=== PATIENT | female | born 1940 | race Caucasian/White ===

== ENCOUNTER 2021-01-18 08:14 | Outpatient (REF) | payer MEDICARE, SELFPAY ==
--- NOTE | ~2021-01-18 | MM_ITS ---
EXAMINATION: MM SCREENING DIGITAL BREAST TOMOSYNTHESIS, BILATERAL CLINICAL INFORMATION: Screening. Asymptomatic. The lifetime risk of breast cancer based on the Tyrer-Cuzick Model is 2%. COMPARISON: Mammography: 02/17/2019, 01/08/2018, 09/06/2016, 08/26/2015, 12/23/2013 TECHNIQUE: Digital breast tomosynthesis is performed in both the craniocaudal and mediolateral oblique views along with computer-aided detection (CAD). Synthesized 2D images are generated from the tomosynthesis. FINDINGS: There are scattered areas of fibroglandular density (ACR BI-RADS breast composition Category b). Right breast has scattered benign coarse and round calcifications similar to prior studies. There are other grouped calcifications in the posterior upper outer right breast which appear increased and some heterogeneous and fine. This represents change from prior exams. Patient will be recalled for additional imaging. Otherwise, the right breast parenchymal pattern shows no developing density or interval mass or architectural abnormality. The bilateral axilla and skin contours are unremarkable. Left breast has scattered benign coarse, round, and some ductal secretory calcifications. No suspicious calcifications. The left CC tomography has questionable architectural changes mid outer quadrant. Finding not seen on synthesize CC view and there is no correlate on MLO view. This may represent incompletely compressed glandular tissue. Patient will be recalled for additional imaging. MM/MM tomosynthesis screening BI IMPRESSION: 1. Right: Grouped heterogeneous calcifications posterior upper outer quadrant. 2. Left: Question of architectural changes mid outer quadrant limited to CC view tomography, possibly related to incompletely compressed glandular tissue. ASSESSMENT: BI-RADS 0: Incomplete - Need Additional Imaging Evaluation RECOMMENDATION: 1. Additional views right breast: magnification exaggerated CC; magnification ML. 2. Additional views left breast (3D rolled CC x2; 3D ML). Targeted ultrasound if warranted after review of the additional views. 3. Radiology department staff will contact the patient for additional imaging. This patient's information was entered into a reminder system with a target due date for their next mammogram.
== END 2021-01-18 08:15 | disposition home or self-care (01) ==
LOC: HO.MAMMO 08:14
PROVIDERS: PCP Internal Medicine Medical Oncology; Visit Provider Internal Medicine Medical Oncology
DX: Z12.31 Encounter for screening mammogram for malignant neoplasm of breast (principal)
CPT/HCPCS: 77063; 77067

== ENCOUNTER 2021-02-02 13:43 | Outpatient (REF) | payer MEDICARE, SELFPAY ==
--- NOTE | ~2021-02-02 | MM_ITS ---
EXAMINATION: MM DIAGNOSTIC DIGITAL BREAST TOMOSYNTHESIS, BILATERAL US DIAGNOSTIC ULTRASOUND BREAST, LEFT CLINICAL INFORMATION: Recall from screening for increased grouped calcifications posterior upper outer right breast and question of architectural changes mid outer left breast limited to CC view. COMPARISON: Mammography: 02/02/2021, 01/18/2021, 02/17/2019, 01/08/2018 TECHNIQUE: Digital breast tomosynthesis is performed. 2D images are generated from the tomosynthesis. The following views are obtained: Rolled CC x2, standard ML. In addition, magnification right exaggerated CC and magnification right ML views are also obtained. Ultrasound left breast is targeted to the upper outer quadrant. Grayscale imaging and color Doppler are performed without and with harmonics. FINDINGS: There are scattered areas of fibroglandular density (ACR BI-RADS breast composition Category b). Additional views left breast show no architectural distortion. Magnification views right breast demonstrate increased grouped heterogeneous calcifications in the area of concern posterior upper outer right breast. This represents change from prior exams. Stereotactic sampling is recommended. Ultrasound outer left breast demonstrates no mass or architectural abnormality. Results are discussed with the patient at time of visit. Results and recommendation called to medical equipment repair technician (Monique) for Dr. Lee on 02/02/2021. MM/MM tomosynthesis added view BI IMPRESSION: 1. Right: Grouped heterogeneous calcifications posterior upper outer right breast. 2. Left: Additional views show no persistent architectural abnormality. Unremarkable targeted ultrasound left breast. ASSESSMENT: BI-RADS 4: Suspicious RECOMMENDATION: Stereotactic biopsy right breast calcifications. This patient's information was entered into a reminder system with a target due date for their next mammogram.
== END 2021-02-02 13:44 | disposition home or self-care (01) ==
LOC: HO.MAMMO 13:43
PROVIDERS: PCP Internal Medicine Medical Oncology; Visit Provider Internal Medicine Medical Oncology
DX: R92.1 Mammographic calcification found on diagnostic imaging of breast (principal); N64.89 Other specified disorders of breast; E53.8 Deficiency of other specified B group vitamins
CPT/HCPCS: 76642; 77062; 77066

== ENCOUNTER 2021-02-03 | Outpatient (REF) | payer MEDICARE, SELFPAY ==
[2021-02-10 19:33] LABS: Intrinsic Factor Antibodies Negative (Negative)
== END 2021-02-03 00:01 | disposition home or self-care (01) ==
LOC: HO.LAB
PROVIDERS: Visit Provider Internal Medicine Medical Oncology
DX: E53.8 Deficiency of other specified B group vitamins (principal)
CPT/HCPCS: 36415; 86340

== ENCOUNTER 2021-02-10 09:51 | Outpatient (REF) | payer MEDICARE, SELFPAY ==
--- NOTE | ~2021-02-10 | MM_ITS ---
EXAMINATION: STEREOTACTIC TOMOSYNTHESIS-GUIDED VACUUM-ASSISTED BREAST BIOPSY, RIGHT SPECIMEN RADIOGRAPH, RIGHT POST PROCEDURE DIGITAL MAMMOGRAM, RIGHT CLINICAL INFORMATION: Increased grouped heterogeneous calcifications posterior upper outer right breast. COMPARISON: Mammography 01/18/2021, 02/02/2021. TECHNIQUE/PROCEDURE: Informed consent was obtained from the patient after discussion of the benefits, risks, and alternatives to biopsy today. Patient appeared to understand. Gave opportunity for questions. Patient signed consent form. BIOPSY TABLE: [employer] Affirm Prone Biopsy System. LESION: Grouped heterogeneous calcifications posterior upper outer right breast. LOCAL ANESTHESIA: 8 mL 1% lidocaine; 10 mL 1% lidocaine with epinephrine. DERMATOTOMY: Single skin kandi dermatotomy performed. NEEDLE: [employer] Eviva 9-gauge vacuum assisted core biopsy device. APPROACH: craniocaudal. TARGETING: Digital breast tomosynthesis used for targeting. CORES: 9. CLIP: [employer] SecurMark Cylinder-shaped marker. SPECIMEN RADIOGRAPH: Specimen radiograph is taken in separate room using digital mammography. There are numerous calcifications in the cores, over 50 in number. POST PROCEDURE UNILATERAL DIGITAL MAMMOGRAM: The post biopsy mammogram is performed in separate room using separate digital mammography equipment from the biopsy procedure. CC and ML views are obtained. There are scattered areas of fibroglandular density (breast composition category: b). The clip marker is in position. The calcifications are markedly decreased at the biopsy site. No gross hematoma. The patient tolerated the procedure well. No immediate complications. Home instructions reviewed with the patient. Final pathology results are pending. MM/MM stereotactic biopsy RT IMPRESSION: 1. Digital tomosynthesis-guided core biopsy right breast with clip placement. 2. Specimen radiograph taken and post procedure mammogram. There is satisfactory positioning of the biopsy clip. 3. Final pathology results pending. An addendum report will be issued.
== END 2021-02-10 09:52 | disposition home or self-care (01) ==
LOC: HO.MAMMO 09:51
PROVIDERS: Visit Provider Internal Medicine Medical Oncology
DX: R92.1 Mammographic calcification found on diagnostic imaging of breast (principal)
CPT/HCPCS: 19081; 88305; A4648

== ENCOUNTER 2021-05-05 07:50 | Outpatient (REF) | payer MEDICARE, SELFPAY ==
[2021-05-05 11:16] LABS: Vitamin B12 1182 pg/mL (200-900)
[2021-05-06 07:21] LABS: Estimated Average Glucose 154 mg/dL; Hemoglobin A1C 148.8994 umol/L
[2021-05-09 00:42] LABS: Intrinsic Factor Antibodies Negative (Negative)
== END 2021-05-05 07:51 | disposition home or self-care (01) ==
LOC: HO.10HDL 07:50
PROVIDERS: Visit Provider Internal Medicine Medical Oncology
DX: E78.5 Hyperlipidemia, unspecified (principal); E11.9 Type 2 diabetes mellitus without complications; E53.8 Deficiency of other specified B group vitamins
CPT/HCPCS: 36415; 82607; 83036; 86340

== ENCOUNTER 2021-08-03 08:07 | Outpatient (REF) | payer MEDICARE, SELFPAY ==
[2021-08-03 10:32] LABS: MANUAL DIFF FLAG NO
[2021-08-03 10:40] LABS: Basophils Absolute Auto 0.1 X10*3/uL (0.0-0.2); Basophils Percent Auto 0.8 % (0-2); Eosinophils Absolute Auto 0.1 X10*3/uL (0.0-0.4); Eosinophils Percent Auto 1.4 % (0-4); Hematocrit 32.6 % (37.0-47.0); Hemoglobin 9.8 g/dl (12.0-16.0); Imm Gran Abs Auto 0.01 X10*3/uL (0.00-0.03); Imm Gran Pct Auto 0.2 % (0.0-0.4); Lymphocytes Absolute Auto 1.6 X10*3/uL (1.2-4.9); Lymphocytes Percent Auto 24.3 % (20-40); Mean Corpuscular HGB Conc 30.1 g/dl (31.0-35.0); Mean Corpuscular Hemoglobin 26.2 pg (27.0-33.0); Mean Corpuscular Volume 87.2 fL (80.0-98.0); Mean Platelet Volume 12.1 fL (9.4-12.3); Monocytes Absolute Auto 0.4 X10*3/uL (0.1-1.2); Monocytes Percent Auto 6.3 % (2-11); Neutrophils Absolute Auto 4.5 x10*3/uL (2.0-8.3); Platelet Count 368 X10*3/uL (160-400); Red Blood Count 3.74 X10*6/uL (4.20-5.50); Red Cell Distribution Width 16.1 % (11.0-16.0); White Blood Count 6.6 X10*3/uL (4.8-10.8)
[2021-08-03 10:49] LABS: Estimated Average Glucose 160 mg/dL; Hemoglobin A1c % 7.2 %
[2021-08-03 10:53] LABS: Alanine Aminotransferase 13 U/L (0-31); Alkaline Phosphatase 46 U/L (39-117); Anion Gap 12 (12-20); Aspartate Amino Transferase 15 U/L (5-31); Bilirubin Total 0.3 mg/dL (0.0-1.0); Blood Urea Nitrogen 14 mg/dL (9-16); Calcium 10.2 mg/dL (8.4-10.2); Carbon Dioxide 29 mmol/L (22-29); Chloride 106 mmol/L (96-108); Cholesterol 147 mg/dL; Estimated Glomerular Filt Rate > 60; Glucose Fasting 132 mg/dL (60-99); HDL Cholesterol 51 mg/dL; LDL Cholesterol Calculated 76 mg/dl; Potassium 5.1 mmol/L (3.3-5.1); Sodium 142 mmol/L (135-145); Total Protein 6.7 g/dL (6.5-8.0); Triglycerides 102 mg/dL
[2021-08-03 11:15] LABS: Free T4 (Free Thyroxine) 0.96 ng/dL (0.71-1.85); Thyroid Stimulating Hormone 4.52 uIU/mL (0.32-4.0)
[2021-08-03 11:42] LABS: Vitamin B12 1724 pg/mL (200-900)
== END 2021-08-03 08:08 | disposition home or self-care (01) ==
LOC: HO.10HDL 08:07
PROVIDERS: Visit Provider Internal Medicine Medical Oncology
DX: E78.5 Hyperlipidemia, unspecified (principal); E53.8 Deficiency of other specified B group vitamins; I10 Essential (primary) hypertension
CPT/HCPCS: 36415; 80053; 80061; 82607; 83036; 84439; 84443; 85025

== ENCOUNTER 2021-11-01 07:41 | Outpatient (REF) | payer MEDICARE, SELFPAY ==
[2021-11-01 10:16] LABS: MANUAL DIFF FLAG NO
[2021-11-01 10:21] LABS: Basophils Absolute Auto 0.1 X10*3/uL (0.0-0.2); Basophils Percent Auto 0.7 % (0-2); Eosinophils Absolute Auto 0.1 X10*3/uL (0.0-0.4); Eosinophils Percent Auto 1.2 % (0-4); Hematocrit 34.5 % (37.0-47.0); Hemoglobin 10.4 g/dl (12.0-16.0); Imm Gran Abs Auto 0.03 X10*3/uL (0.00-0.03); Imm Gran Pct Auto 0.4 % (0.0-0.4); Immature Retic Fraction 14.9 % (3.0-15.9); Lymphocytes Absolute Auto 2.3 X10*3/uL (1.2-4.9); Lymphocytes Percent Auto 26.9 % (20-40); Mean Corpuscular HGB Conc 30.1 g/dl (31.0-35.0); Mean Corpuscular Hemoglobin 26.4 pg (27.0-33.0); Mean Corpuscular Volume 87.6 fL (80.0-98.0); Mean Platelet Volume 11.9 fL (9.4-12.3); Monocytes Absolute Auto 0.5 X10*3/uL (0.1-1.2); Neutrophils Absolute Auto 5.4 x10*3/uL (2.0-8.3); Neutrophils Percent Auto 64.8 % (45-73); Platelet Count 366 X10*3/uL (160-400); Red Blood Count 3.94 X10*6/uL (4.20-5.50); Red Cell Distribution Width 16.5 % (11.0-16.0); Reticulocyte Percent 1.3 % (0.5-1.8); Reticulocytes Absolute 0.052 X10*6/uL (0.026-0.095); White Blood Count 8.4 X10*3/uL (4.8-10.8)
[2021-11-01 10:27] LABS: Appearance Urine HAZY; Color Urine YELLOW; Glucose Urine UA NEG (NEG); Leukocyte Esterase Urine 3+ (NEG); Nitrite Urine NEG (NEG); PH 5.5 (5.0-8.0); Specific Gravity - Urine 1.025 (1.005-1.025); Urine Blood NEG (NEG); Urine Ketones NEG (NEG); Urine Protein NEG (NEG-TRACE)
[2021-11-01 10:49] LABS: Alanine Aminotransferase 15 U/L (0-31); Albumin Level 4.1 g/dL (3.5-5.0); Alkaline Phosphatase 51 U/L (39-117); Anion Gap 14 (12-20); Aspartate Amino Transferase 16 U/L (5-31); Bilirubin Total 0.2 mg/dL (0.0-1.0); Blood Urea Nitrogen 16 mg/dL (9-16); Calcium 10.2 mg/dL (8.4-10.2); Carbon Dioxide 27 mmol/L (22-29); Chloride 104 mmol/L (96-108); Cholesterol 162 mg/dL; Estimated Glomerular Filt Rate > 60; Glucose Random 125 mg/dL (60-115); HDL Cholesterol 54 mg/dL; LDL Cholesterol Calculated 85 mg/dl; Potassium 4.8 mmol/L (3.3-5.1); Sodium 140 mmol/L (135-145); Total Protein 6.9 g/dL (6.5-8.0); Triglycerides 115 mg/dL
[2021-11-01 11:12] LABS: Erythrocyte Sedimentation Rate 18 MM/HR (0-20)
[2021-11-01 11:18] LABS: Amorphous Sediment Urine 1+ /LPF; Bacteria Urine 2+ /LPF; Mucus Urine 1+ /LPF; RBC Urine 0 /HPF (0); Squamous Epithelial Cell Urine 2+ /LPF
[2021-11-01 11:36] LABS: Ferritin 5 ng/mL (10-250)
== END 2021-11-01 07:42 | disposition home or self-care (01) ==
LOC: HO.10HDL 07:41
PROVIDERS: PCP Internal Medicine Medical Oncology; Visit Provider Internal Medicine Medical Oncology
DX: E78.5 Hyperlipidemia, unspecified (principal); I10 Essential (primary) hypertension; E53.8 Deficiency of other specified B group vitamins
CPT/HCPCS: 36415; 80053; 80061; 81001; 82728; 85025; 85045; 85652

== ENCOUNTER 2022-01-26 07:58 | Outpatient (REF) | payer MEDICARE, SELFPAY ==
[2022-01-26 08:11] LABS: MANUAL DIFF FLAG NO
[2022-01-26 08:21] LABS: Basophils Percent Auto 0.6 % (0-2); Eosinophils Absolute Auto 0.1 X10*3/uL (0.0-0.4); Eosinophils Percent Auto 1.3 % (0-4); Hematocrit 35.5 % (37.0-47.0); Hemoglobin 10.9 g/dl (12.0-16.0); Imm Gran Abs Auto 0.02 X10*3/uL (0.00-0.03); Imm Gran Pct Auto 0.3 % (0.0-0.4); Immature Retic Fraction 14.2 % (3.0-15.9); Lymphocytes Absolute Auto 1.8 X10*3/uL (1.2-4.9); Lymphocytes Percent Auto 25.1 % (20-40); Mean Corpuscular HGB Conc 30.7 g/dl (31.0-35.0); Mean Corpuscular Hemoglobin 27.5 pg (27.0-33.0); Mean Corpuscular Volume 89.4 fL (80.0-98.0); Mean Platelet Volume 11.2 fL (9.4-12.3); Monocytes Absolute Auto 0.4 X10*3/uL (0.1-1.2); Monocytes Percent Auto 5.8 % (2-11); Neutrophils Absolute Auto 4.8 x10*3/uL (2.0-8.3); Neutrophils Percent Auto 66.9 % (45-73); Platelet Count 298 X10*3/uL (160-400); Red Blood Count 3.97 X10*6/uL (4.20-5.50); Red Cell Distribution Width 17.3 % (11.0-16.0); Retic HGB Equivalent 32.8 pg (30.0-35.0); Reticulocyte Percent 1.2 % (0.5-1.8); Reticulocytes Absolute 0.049 X10*6/uL (0.026-0.095); White Blood Count 7.2 X10*3/uL (4.8-10.8)
[2022-01-26 08:28] LABS: Estimated Average Glucose 143 mg/dL; Hemoglobin A1c % 6.6 %
[2022-01-26 08:43] LABS: Alanine Aminotransferase 15 U/L (0-31); Albumin Level 4.2 g/dL (3.5-5.0); Alkaline Phosphatase 46 U/L (39-117); Anion Gap 11 (12-20); Aspartate Amino Transferase 15 U/L (5-31); Bilirubin Total 0.4 mg/dL (0.0-1.0); Blood Urea Nitrogen 15 mg/dL (9-16); Calcium 10.2 mg/dL (8.4-10.2); Carbon Dioxide 31 mmol/L (22-29); Chloride 104 mmol/L (96-108); Cholesterol 146 mg/dL; Estimated Glomerular Filt Rate > 60; Glucose Fasting 131 mg/dL (60-99); HDL Cholesterol 50 mg/dL; LDL Cholesterol Calculated 75 mg/dl; Potassium 5.1 mmol/L (3.3-5.1); Sodium 141 mmol/L (135-145); Total Protein 6.9 g/dL (6.5-8.0); Triglycerides 108 mg/dL
[2022-01-26 09:05] LABS: Ferritin 5 ng/mL (10-250)
== END 2022-01-26 07:59 | disposition home or self-care (01) ==
LOC: HO.LAB 07:58
PROVIDERS: PCP Internal Medicine Medical Oncology; Visit Provider Internal Medicine Medical Oncology
DX: E53.8 Deficiency of other specified B group vitamins (principal); D64.9 Anemia, unspecified; E78.5 Hyperlipidemia, unspecified; E11.9 Type 2 diabetes mellitus without complications; I10 Essential (primary) hypertension
CPT/HCPCS: 36415; 80053; 80061; 82728; 83036; 85025; 85045

== ENCOUNTER 2022-05-25 07:16 | Outpatient (REF) | payer MEDICARE, SELFPAY ==
[2022-05-25 07:41] LABS: MANUAL DIFF FLAG NO
[2022-05-25 08:01] LABS: Basophils Percent Auto 0.5 % (0-2); Eosinophils Absolute Auto 0.1 X10*3/uL (0.0-0.4); Eosinophils Percent Auto 1.2 % (0-4); Hematocrit 36.6 % (37.0-47.0); Hemoglobin 11.5 g/dl (12.0-16.0); Imm Gran Abs Auto 0.01 X10*3/uL (0.00-0.03); Imm Gran Pct Auto 0.2 % (0.0-0.4); Lymphocytes Absolute Auto 1.4 X10*3/uL (1.2-4.9); Lymphocytes Percent Auto 22.7 % (20-40); Mean Corpuscular HGB Conc 31.4 g/dl (31.0-35.0); Mean Corpuscular Hemoglobin 29.2 pg (27.0-33.0); Mean Corpuscular Volume 92.9 fL (80.0-98.0); Monocytes Absolute Auto 0.4 X10*3/uL (0.1-1.2); Monocytes Percent Auto 6.6 % (2-11); Neutrophils Absolute Auto 4.2 x10*3/uL (2.0-8.3); Neutrophils Percent Auto 68.8 % (45-73); Platelet Count 294 X10*3/uL (160-400); Red Blood Count 3.94 X10*6/uL (4.20-5.50); Red Cell Distribution Width 14.3 % (11.0-16.0); White Blood Count 6.1 X10*3/uL (4.8-10.8)
[2022-05-25 08:12] LABS: Alanine Aminotransferase 11 U/L (0-31); Albumin Level 4.1 g/dL (3.5-5.0); Alkaline Phosphatase 45 U/L (39-117); Anion Gap 15 (12-20); Aspartate Amino Transferase 14 U/L (5-31); Bilirubin Total 0.4 mg/dL (0.0-1.0); Blood Urea Nitrogen 11 mg/dL (9-16); Calcium 9.7 mg/dL (8.4-10.2); Carbon Dioxide 29 mmol/L (22-29); Chloride 104 mmol/L (96-108); Cholesterol 133 mg/dL; Estimated Glomerular Filt Rate > 60; Glucose Fasting 116 mg/dL (60-99); HDL Cholesterol 52 mg/dL; LDL Cholesterol Calculated 59 mg/dl; Potassium 4.6 mmol/L (3.3-5.1); Sodium 143 mmol/L (135-145); Total Protein 6.6 g/dL (6.5-8.0); Triglycerides 110 mg/dL
[2022-05-25 08:18] LABS: Estimated Average Glucose 148 mg/dL; Hemoglobin A1c % 6.8 %
[2022-05-25 08:27] LABS: Creatinine Urine 123.71 mg/dL; Microalbum/Creatinine Ratio Ur 7.2 ug/mg cr
== END 2022-05-25 07:17 | disposition home or self-care (01) ==
LOC: HO.LAB 07:16
PROVIDERS: PCP Internal Medicine Medical Oncology; Visit Provider Internal Medicine Medical Oncology
DX: E53.8 Deficiency of other specified B group vitamins (principal); E78.5 Hyperlipidemia, unspecified; E11.9 Type 2 diabetes mellitus without complications; I10 Essential (primary) hypertension
CPT/HCPCS: 36415; 80053; 80061; 82043; 83036; 85025

== ENCOUNTER 2022-09-27 08:01 | Outpatient (REF) | payer MEDICARE, SELFPAY ==
[2022-09-27 10:56] LABS: MANUAL DIFF FLAG NO
[2022-09-27 11:27] LABS: Basophils Percent Auto 0.6 % (0-2); Eosinophils Absolute Auto 0.1 X10*3/uL (0.0-0.4); Eosinophils Percent Auto 0.9 % (0-4); Hematocrit 38.9 % (37.0-47.0); Hemoglobin 12.3 g/dl (12.0-16.0); Imm Gran Abs Auto 0.01 X10*3/uL (0.00-0.03); Imm Gran Pct Auto 0.1 % (0.0-0.4); Lymphocytes Absolute Auto 1.7 X10*3/uL (1.2-4.9); Lymphocytes Percent Auto 25.3 % (20-40); Mean Corpuscular HGB Conc 31.6 g/dl (31.0-35.0); Mean Corpuscular Hemoglobin 29.6 pg (27.0-33.0); Mean Corpuscular Volume 93.5 fL (80.0-98.0); Mean Platelet Volume 11.3 fL (9.4-12.3); Monocytes Absolute Auto 0.3 X10*3/uL (0.1-1.2); Neutrophils Absolute Auto 4.7 x10*3/uL (2.0-8.3); Neutrophils Percent Auto 68.1 % (45-73); Platelet Count 347 X10*3/uL (160-400); Red Blood Count 4.16 X10*6/uL (4.20-5.50); Red Cell Distribution Width 13.2 % (11.0-16.0); White Blood Count 6.9 X10*3/uL (4.8-10.8)
[2022-09-27 11:45] LABS: Estimated Average Glucose 154 mg/dL
[2022-09-27 12:02] LABS: Alanine Aminotransferase 13 U/L (0-31); Albumin Level 4.2 g/dL (3.5-5.0); Alkaline Phosphatase 45 U/L (39-117); Anion Gap 15 (12-20); Aspartate Amino Transferase 14 U/L (5-31); Bilirubin Total 0.4 mg/dL (0.0-1.0); Blood Urea Nitrogen 15 mg/dL (9-16); Calcium 10.4 mg/dL (8.4-10.2); Carbon Dioxide 29 mmol/L (22-29); Chloride 104 mmol/L (96-108); Cholesterol 175 mg/dL; Estimated Glomerular Filt Rate > 60; Glucose Fasting 122 mg/dL (60-99); HDL Cholesterol 56 mg/dL; LDL Cholesterol Calculated 94 mg/dl; Potassium 4.6 mmol/L (3.3-5.1); Sodium 143 mmol/L (135-145); Total Protein 6.8 g/dL (6.5-8.0); Triglycerides 128 mg/dL; Vitamin D 25-OH Total 48.6 ng/mL (>30)
== END 2022-09-27 08:02 | disposition home or self-care (01) ==
LOC: HO.10HDL 08:01
PROVIDERS: Visit Provider Internal Medicine Medical Oncology
DX: E11.9 Type 2 diabetes mellitus without complications (principal); E61.1 Iron deficiency; E78.5 Hyperlipidemia, unspecified
CPT/HCPCS: 36415; 80053; 80061; 82306; 83036; 85025

== ENCOUNTER 2023-01-01 06:39 | Outpatient (REF) | payer MEDICARE, SELFPAY ==
[2023-01-01 06:50] LABS: MANUAL DIFF FLAG NO
[2023-01-01 07:43] LABS: Basophils Absolute Auto 0.1 X10*3/uL (0.0-0.2); Basophils Percent Auto 0.9 % (0-2); Eosinophils Absolute Auto 0.1 X10*3/uL (0.0-0.4); Eosinophils Percent Auto 0.8 % (0-4); Hematocrit 37.9 % (37.0-47.0); Hemoglobin 11.9 g/dl (12.0-16.0); Imm Gran Abs Auto 0.03 X10*3/uL (0.00-0.03); Imm Gran Pct Auto 0.4 % (0.0-0.4); Lymphocytes Absolute Auto 2.3 X10*3/uL (1.2-4.9); Lymphocytes Percent Auto 29.8 % (20-40); Mean Corpuscular HGB Conc 31.4 g/dl (31.0-35.0); Mean Corpuscular Hemoglobin 29.8 pg (27.0-33.0); Mean Platelet Volume 11.3 fL (9.4-12.3); Monocytes Absolute Auto 0.5 X10*3/uL (0.1-1.2); Neutrophils Absolute Auto 4.7 x10*3/uL (2.0-8.3); Neutrophils Percent Auto 62.1 % (45-73); Platelet Count 317 X10*3/uL (160-400); Red Blood Count 3.99 X10*6/uL (4.20-5.50); White Blood Count 7.6 X10*3/uL (4.8-10.8)
[2023-01-01 07:56] LABS: Estimated Average Glucose 148 mg/dL; Hemoglobin A1c % 6.8 %
[2023-01-01 08:16] LABS: Alanine Aminotransferase 11 U/L (0-31); Alkaline Phosphatase 44 U/L (39-117); Anion Gap 13 (12-20); Aspartate Amino Transferase 16 U/L (5-31); Bilirubin Total 0.4 mg/dL (0.0-1.0); Blood Urea Nitrogen 12 mg/dL (9-16); Calcium 10.3 mg/dL (8.4-10.2); Carbon Dioxide 29 mmol/L (22-29); Chloride 105 mmol/L (96-108); Cholesterol 156 mg/dL; Estimated Glomerular Filt Rate > 60; Glucose Fasting 119 mg/dL (60-99); HDL Cholesterol 54 mg/dL; LDL Cholesterol Calculated 81 mg/dl; Potassium 4.7 mmol/L (3.3-5.1); Sodium 142 mmol/L (135-145); Total Protein 6.6 g/dL (6.5-8.0); Triglycerides 106 mg/dL
[2023-01-01 09:39] LABS: Creatinine Urine 112.74 mg/dL; Microalbum/Creatinine Ratio Ur 6.2 ug/mg cr
== END 2023-01-01 06:40 | disposition home or self-care (01) ==
LOC: HO.LAB 06:39
PROVIDERS: PCP Internal Medicine Medical Oncology; Visit Provider Internal Medicine Medical Oncology
DX: E11.9 Type 2 diabetes mellitus without complications (principal); E78.5 Hyperlipidemia, unspecified; I10 Essential (primary) hypertension
CPT/HCPCS: 36415; 80053; 80061; 82043; 83036; 85025

== ENCOUNTER 2023-02-20 10:14 | Outpatient (REF) | payer MEDICARE, SELFPAY ==
--- NOTE | ~2023-02-20 | MM_ITS ---
EXAMINATION: MM SCREENING DIGITAL BREAST TOMOSYNTHESIS, BILATERAL CLINICAL INFORMATION: Screening. Asymptomatic. The lifetime risk of breast cancer based on the Tyrer-Cuzick Model is 1.8%. COMPARISON: Mammography: This study is compared with prior exams dating back to 2018. TECHNIQUE: Digital breast tomosynthesis is performed in both the craniocaudal and mediolateral oblique views along with computer-aided detection (CAD). Synthesized 2D images are generated from the tomosynthesis. FINDINGS: The breasts are heterogeneously dense, which may obscure small masses (ACR BI-RADS breast composition Category c). There are no significant masses, abnormal calcifications, or other abnormalities. There is a tissue marker in the upper outer quadrant of the right breast from prior benign percutaneous biopsy. Bilateral benign calcifications are present. MM/MM tomosynthesis screening BI IMPRESSION: No mammographic evidence of malignancy. ASSESSMENT: BI-RADS BI-RADS 2 - Benign Findings RECOMMENDATION: Routine annual mammography screening. 1 year F/U This examination should not preclude the clinical evaluation of a suspicious palpable abnormality. This patient's information was entered into a reminder system with a target due date for their next mammogram.
== END 2023-02-20 10:15 | disposition home or self-care (01) ==
LOC: HO.MAMMO 10:14
PROVIDERS: PCP Internal Medicine Medical Oncology; Visit Provider Internal Medicine Medical Oncology
DX: Z12.31 Encounter for screening mammogram for malignant neoplasm of breast (principal)
CPT/HCPCS: 77063; 77067

== ENCOUNTER → 2023-02-20 10:15 | Outpatient (BNV) | payer MEDICARE, SELFPAY | PROVIDERS: PCP Internal Medicine Medical Oncology; Visit Provider Radiology Diagnostic Radiology | DX: Z12.31 Encounter for screening mammogram for malignant neoplasm of breast (principal) | CPT/HCPCS: 77063; 77067 ==

== ENCOUNTER 2023-05-08 06:57 | Outpatient (REF) | payer MEDICARE, SELFPAY ==
[2023-05-08 07:11] LABS: MANUAL DIFF FLAG NO
[2023-05-08 07:56] LABS: Basophils Absolute Auto 0.1 X10*3/uL (0.0-0.2); Basophils Percent Auto 0.8 % (0-2); Eosinophils Absolute Auto 0.1 X10*3/uL (0.0-0.4); Eosinophils Percent Auto 1.1 % (0-4); Hematocrit 38.7 % (37.0-47.0); Hemoglobin 12.1 g/dl (12.0-16.0); Imm Gran Abs Auto 0.02 X10*3/uL (0.00-0.03); Imm Gran Pct Auto 0.3 % (0.0-0.4); Lymphocytes Absolute Auto 1.6 X10*3/uL (1.2-4.9); Lymphocytes Percent Auto 21.9 % (20-40); Mean Corpuscular HGB Conc 31.3 g/dl (31.0-35.0); Mean Corpuscular Hemoglobin 29.4 pg (27.0-33.0); Mean Corpuscular Volume 93.9 fL (80.0-98.0); Mean Platelet Volume 10.9 fL (9.4-12.3); Monocytes Absolute Auto 0.4 X10*3/uL (0.1-1.2); Monocytes Percent Auto 5.3 % (2-11); Neutrophils Absolute Auto 5.2 x10*3/uL (2.0-8.3); Neutrophils Percent Auto 70.6 % (45-73); Platelet Count 339 X10*3/uL (160-400); Red Blood Count 4.12 X10*6/uL (4.20-5.50); Red Cell Distribution Width 13.6 % (11.0-16.0); White Blood Count 7.4 X10*3/uL (4.8-10.8)
[2023-05-08 08:13] LABS: Vitamin B12 929 pg/mL (200-900)
[2023-05-08 08:20] LABS: Alanine Aminotransferase 9 U/L (0-31); Albumin Level 4.1 g/dL (3.5-5.0); Alkaline Phosphatase 45 U/L (39-117); Anion Gap 14 (12-20); Aspartate Amino Transferase 15 U/L (5-31); Bilirubin Total 0.4 mg/dL (0.0-1.0); Blood Urea Nitrogen 11 mg/dL (9-16); Calcium 10.2 mg/dL (8.4-10.2); Carbon Dioxide 27 mmol/L (22-29); Chloride 104 mmol/L (96-108); Cholesterol 149 mg/dL (<200); Estimated Glomerular Filt Rate > 60; Glucose Fasting 131 mg/dL (60-99); HDL Cholesterol 52 mg/dL (>40); LDL Cholesterol Calculated 74 mg/dL (<100); Potassium 4.8 mmol/L (3.3-5.1); Sodium 140 mmol/L (135-145); Total Protein 7.1 g/dL (6.5-8.0); Triglycerides 118 mg/dL (<150)
[2023-05-08 12:21] LABS: Estimated Average Glucose 148 mg/dL; Hemoglobin A1c % 6.8 % (<6.0)
== END 2023-05-08 06:58 | disposition home or self-care (01) ==
LOC: HO.LAB 06:57
PROVIDERS: PCP Internal Medicine Medical Oncology; Visit Provider Internal Medicine Medical Oncology
DX: E11.9 Type 2 diabetes mellitus without complications (principal); I10 Essential (primary) hypertension; E66.3 Overweight
CPT/HCPCS: 36415; 80053; 80061; 82607; 83036; 85025

== ENCOUNTER 2023-05-10 12:57 | Outpatient (REF) | payer MEDICARE, SELFPAY | END 2023-05-10 12:58 | disposition home or self-care (01) | LOC: HO.10HDLNP 12:57 | PROVIDERS: Visit Provider Internal Medicine Medical Oncology | DX: J02.9 Acute pharyngitis, unspecified (principal) | CPT/HCPCS: 87070; 87205 ==

== ENCOUNTER 2023-09-06 07:37 | Outpatient (REF) | payer MEDICARE, SELFPAY ==
[2023-09-06 10:29] LABS: MANUAL DIFF FLAG NO
[2023-09-06 10:41] LABS: Basophils Absolute Auto 0.1 X10*3/uL (0.0-0.2); Basophils Percent Auto 0.8 % (0-2); Eosinophils Absolute Auto 0.1 X10*3/uL (0.0-0.4); Eosinophils Percent Auto 1.3 % (0-4); Hemoglobin 11.7 g/dl (12.0-16.0); Imm Gran Abs Auto 0.01 X10*3/uL (0.00-0.03); Imm Gran Pct Auto 0.2 % (0.0-0.4); Lymphocytes Absolute Auto 1.4 X10*3/uL (1.2-4.9); Lymphocytes Percent Auto 21.5 % (20-40); Mean Corpuscular HGB Conc 31.6 g/dl (31.0-35.0); Mean Corpuscular Hemoglobin 29.4 pg (27.0-33.0); Mean Platelet Volume 11.3 fL (9.4-12.3); Monocytes Absolute Auto 0.3 X10*3/uL (0.1-1.2); Monocytes Percent Auto 5.3 % (2-11); Neutrophils Absolute Auto 4.5 x10*3/uL (2.0-8.3); Neutrophils Percent Auto 70.9 % (45-73); Platelet Count 320 X10*3/uL (160-400); Red Blood Count 3.98 X10*6/uL (4.20-5.50); Red Cell Distribution Width 13.3 % (11.0-16.0); White Blood Count 6.4 X10*3/uL (4.8-10.8)
[2023-09-06 10:51] LABS: Estimated Average Glucose 151 mg/dL; Hemoglobin A1c % 6.9 % (<6.0)
[2023-09-06 11:16] LABS: Creatinine Urine 76.75 mg/dL; Microalbum/Creatinine Ratio Ur 37.7 ug/mg cr (<30)
[2023-09-06 13:10] LABS: Alanine Aminotransferase 12 U/L (0-31); Albumin Level 4.1 g/dL (3.5-5.0); Alkaline Phosphatase 43 U/L (39-117); Anion Gap 11 (12-20); Aspartate Amino Transferase 15 U/L (5-31); Bilirubin Total 0.3 mg/dL (0.0-1.0); Blood Urea Nitrogen 14 mg/dL (9-16); Carbon Dioxide 31 mmol/L (22-29); Chloride 106 mmol/L (96-108); Cholesterol 153 mg/dL (<200); Estimated Glomerular Filt Rate > 60; Glucose Fasting 128 mg/dL (60-99); HDL Cholesterol 53 mg/dL (>40); LDL Cholesterol Calculated 74 mg/dL (<100); Potassium 4.7 mmol/L (3.3-5.1); Sodium 143 mmol/L (135-145); Total Protein 7.1 g/dL (6.5-8.0); Triglycerides 134 mg/dL (<150)
[2023-09-06 13:39] LABS: Ferritin 10 ng/mL (10-250)
[2023-09-06 14:30] LABS: Vitamin B12 992 pg/mL (200-900)
== END 2023-09-06 07:38 | disposition home or self-care (01) ==
LOC: HO.10HDL 07:37
PROVIDERS: Visit Provider Internal Medicine Medical Oncology
DX: E78.5 Hyperlipidemia, unspecified (principal); I10 Essential (primary) hypertension; E11.9 Type 2 diabetes mellitus without complications; E53.8 Deficiency of other specified B group vitamins; E61.1 Iron deficiency
CPT/HCPCS: 36415; 80053; 80061; 82043; 82570; 82607; 82728; 83036; 85025

== ENCOUNTER 2024-01-15 06:19 | Outpatient (REF) | payer MEDICARE, SELFPAY ==
[2024-01-15 06:36] LABS: MANUAL DIFF FLAG NO
[2024-01-15 08:03] LABS: Basophils Absolute Auto 0.1 X10*3/uL (0.0-0.2); Eosinophils Absolute Auto 0.1 X10*3/uL (0.0-0.4); Eosinophils Percent Auto 0.9 % (0-4); Hematocrit 37.2 % (37.0-47.0); Imm Gran Abs Auto 0.02 X10*3/uL (0.00-0.03); Imm Gran Pct Auto 0.3 % (0.0-0.4); Lymphocytes Absolute Auto 1.9 X10*3/uL (1.2-4.9); Lymphocytes Percent Auto 32.4 % (20-40); Mean Corpuscular HGB Conc 32.3 g/dl (31.0-35.0); Mean Corpuscular Hemoglobin 30.3 pg (27.0-33.0); Mean Corpuscular Volume 93.9 fL (80.0-98.0); Mean Platelet Volume 11.6 fL (9.4-12.3); Monocytes Absolute Auto 0.3 X10*3/uL (0.1-1.2); Monocytes Percent Auto 5.1 % (2-11); Neutrophils Absolute Auto 3.5 x10*3/uL (2.0-8.3); Neutrophils Percent Auto 60.3 % (45-73); Platelet Count 300 X10*3/uL (160-400); Red Blood Count 3.96 X10*6/uL (4.20-5.50); Red Cell Distribution Width 13.6 % (11.0-16.0); White Blood Count 5.9 X10*3/uL (4.8-10.8)
[2024-01-15 08:34] LABS: Estimated Average Glucose 151 mg/dL; Hemoglobin A1c % 6.9 % (<6.0)
[2024-01-15 08:47] LABS: Alanine Aminotransferase 9 U/L (0-31); Alkaline Phosphatase 43 U/L (39-117); Anion Gap 13 (12-20); Aspartate Amino Transferase 14 U/L (5-31); Bilirubin Total 0.4 mg/dL (0.0-1.0); Blood Urea Nitrogen 16 mg/dL (9-16); Calcium 9.9 mg/dL (8.4-10.2); Carbon Dioxide 29 mmol/L (22-29); Chloride 107 mmol/L (96-108); Cholesterol 149 mg/dL (<200); Estimated Glomerular Filt Rate > 60; Glucose Fasting 124 mg/dL (60-99); HDL Cholesterol 52 mg/dL (>40); LDL Cholesterol Calculated 75 mg/dL (<100); Potassium 4.8 mmol/L (3.3-5.1); Sodium 144 mmol/L (135-145); Total Protein 6.8 g/dL (6.5-8.0); Triglycerides 112 mg/dL (<150)
[2024-01-15 09:16] LABS: Ferritin 16 ng/mL (10-250)
[2024-01-15 09:33] LABS: Vitamin B12 656 pg/mL (200-900)
== END 2024-01-15 06:20 | disposition home or self-care (01) ==
LOC: HO.LAB 06:19
PROVIDERS: PCP Internal Medicine Medical Oncology; Visit Provider Internal Medicine Medical Oncology
DX: E78.5 Hyperlipidemia, unspecified (principal); E53.8 Deficiency of other specified B group vitamins; E61.1 Iron deficiency; E11.9 Type 2 diabetes mellitus without complications
CPT/HCPCS: 36415; 80053; 80061; 82607; 82728; 83036; 85025

== ENCOUNTER 2024-04-23 10:13 | Outpatient (REF) | payer MEDICARE, SELFPAY ==
--- NOTE | ~2024-04-23 | MM_ITS ---
EXAMINATION: MM SCREENING DIGITAL BREAST TOMOSYNTHESIS, BILATERAL CLINICAL INFORMATION: Screening. Asymptomatic. COMPARISON: Mammography: Comparison is made with available priors TECHNIQUE: Digital breast mammography with tomosynthesis is performed in both the craniocaudal and mediolateral oblique views along with computer-aided detection (CAD). FINDINGS: The breasts are heterogeneously dense, which may obscure small masses (ACR BI-RADS breast composition Category c). Marker clip in the right breast from previous benign needle core biopsy. There are no significant masses, abnormal calcifications, or other abnormalities. MM/MM tomosynthesis screening BI IMPRESSION: No mammographic evidence of malignancy. ASSESSMENT: BI-RADS BI-RADS 2 - Benign Findings RECOMMENDATION: Routine annual mammography screening. 1 year F/U This examination should not preclude the clinical evaluation of a suspicious palpable abnormality. This patient's information was entered into a reminder system with a target due date for their next mammogram. Electronically signed by: Sandee Mace DO 05/10/2024 02:16 PM EDT
== END 2024-04-23 10:14 | disposition home or self-care (01) ==
LOC: HO.MAMMO 10:13
PROVIDERS: PCP Internal Medicine Medical Oncology; Visit Provider Internal Medicine Medical Oncology
DX: Z12.31 Encounter for screening mammogram for malignant neoplasm of breast (principal)
CPT/HCPCS: 77063; 77067

== ENCOUNTER → 2024-04-23 10:30 | Outpatient (BNV) | payer MEDICARE, SELFPAY | PROVIDERS: PCP Internal Medicine Medical Oncology; Visit Provider Internal Medicine | DX: Z12.31 Encounter for screening mammogram for malignant neoplasm of breast (principal) | CPT/HCPCS: 77063; 77067 ==

== ENCOUNTER 2024-05-13 06:26 | Outpatient (REF) | payer MEDICARE, SELFPAY ==
[2024-05-13 06:37] LABS: MANUAL DIFF FLAG NO
[2024-05-13 07:35] LABS: Basophils Percent Auto 0.4 % (0-2); Eosinophils Absolute Auto 0.1 X10*3/uL (0.0-0.4); Eosinophils Percent Auto 1.2 % (0-4); Hematocrit 38.1 % (37.0-47.0); Imm Gran Abs Auto 0.01 X10*3/uL (0.00-0.03); Imm Gran Pct Auto 0.1 % (0.0-0.4); Lymphocytes Absolute Auto 1.8 X10*3/uL (1.2-4.9); Lymphocytes Percent Auto 26.5 % (20-40); Mean Corpuscular HGB Conc 31.5 g/dl (31.0-35.0); Mean Corpuscular Hemoglobin 29.8 pg (27.0-33.0); Mean Corpuscular Volume 94.5 fL (80.0-98.0); Mean Platelet Volume 11.1 fL (9.4-12.3); Monocytes Absolute Auto 0.5 X10*3/uL (0.1-1.2); Monocytes Percent Auto 6.5 % (2-11); Neutrophils Absolute Auto 4.5 x10*3/uL (2.0-8.3); Neutrophils Percent Auto 65.3 % (45-73); Platelet Count 289 X10*3/uL (160-400); Red Blood Count 4.03 X10*6/uL (4.20-5.50); Red Cell Distribution Width 13.3 % (11.0-16.0); White Blood Count 6.9 X10*3/uL (4.8-10.8)
[2024-05-13 07:36] LABS: Appearance Urine Cloudy; Color Urine Yellow; Glucose Urine UA Negative (Negative); Leukocyte Esterase Urine Large (3+) (Negative); Nitrite Urine Positive (Negative); UMIC TRIGGER UA YES; Urine Blood Trace (Negative); Urine Ketones Negative (Negative); Urine Protein Negative (Neg-Trace)
[2024-05-13 07:41] LABS: Bacteria Urine 4+ (None Seen); Hyaline Casts Urine 0-2 /LPF (0-2); RBC Urine 0-2 /HPF (0-2); WBC Urine >50 /HPF (0-5)
[2024-05-13 07:48] LABS: Estimated Average Glucose 143 mg/dL; Hemoglobin A1c % 6.6 % (<6.0)
[2024-05-13 08:03] LABS: Alanine Aminotransferase 11 U/L (0-31); Alkaline Phosphatase 38 U/L (39-117); Anion Gap 13 (12-20); Aspartate Amino Transferase 13 U/L (5-31); Bilirubin Total 0.3 mg/dL (0.0-1.0); Blood Urea Nitrogen 13 mg/dL (9-16); Calcium 10.3 mg/dL (8.4-10.2); Carbon Dioxide 29 mmol/L (22-29); Chloride 106 mmol/L (96-108); Cholesterol 149 mg/dL (<200); Estimated Glomerular Filt Rate > 60; Glucose Fasting 124 mg/dL (60-99); HDL Cholesterol 54 mg/dL (>40); LDL Cholesterol Calculated 74 mg/dL (<100); Potassium 4.5 mmol/L (3.3-5.1); Sodium 143 mmol/L (135-145); Triglycerides 108 mg/dL (<150)
[2024-05-13 08:04] LABS: Creatinine Urine 41.05 mg/dL; Microalbum/Creatinine Ratio Ur 63.3 ug/mg cr (<30)
== END 2024-05-13 06:27 | disposition home or self-care (01) ==
LOC: HO.LAB 06:26
PROVIDERS: PCP Internal Medicine Medical Oncology; Visit Provider Internal Medicine Medical Oncology
DX: E78.5 Hyperlipidemia, unspecified (principal); E66.3 Overweight; E11.9 Type 2 diabetes mellitus without complications
CPT/HCPCS: 36415; 80053; 80061; 81001; 82043; 82570; 83036; 85025

== ENCOUNTER 2025-02-08 06:11 | Outpatient (REF) | payer MEDICARE, SELFPAY ==
--- OUTSIDE RECORDS SUMMARY | 2025-01-17 14:45 | XMS_ITS ---
Author Organization See Lee III, MD Address [address] [facility] [place] [address] Care Team Providers Care Validation Intern Name Role Phone See Lee Primary Care Provider [phone] REASON FOR VISIT New Refill Request Medications Medication SIG (Take, Route, Fr equency, Duration) Notes Start Date End Date Status Atenolol 25 MG 1 tablet Orally Once a day for 90 days 07/06/2019 Active Social History Sex Assigned At : Social History Observation Description Sex Assigned At Female Encounters Encounter Location Date Provider Diagnosis See Lee III, MD [address] [place] [address] [place] [address] 01/17/2025 See Lee Hyperlipidemia, unspecified hyperlipidemia type [...] days 06/19 Next Appt Details Provider Name:See Lee, 02/11/2025 09:45:00 AM, [address] [place] [address] [place], [address], Progress Notes * Rachael MORA ADOB: 2 (84 yo F)Acc No.[id number]:01/17/2025 Patient: Rachael GRAY :1940 A ge:84 Y S ex:Female Address:[address] [place] [address], [place] [address] * Refills Refill Atenolol Tablet, 25 MG, Orally, 90, 1 tablet, Once a day, 90 days, Refills=3 * true * Date: Generated for Mahendra turner/Raheem/Bhnauitting on: 0 02/08/2025 06:13 AM EDT
[2025-02-08 06:34] LABS: MANUAL DIFF FLAG NO
[2025-02-08 07:34] LABS: Basophils Percent Auto 0.6 % (0-2); Eosinophils Absolute Auto 0.1 X10*3/uL (0.0-0.4); Eosinophils Percent Auto 1.1 % (0-4); Hematocrit 36.8 % (37.0-47.0); Hemoglobin 11.9 g/dl (12.0-16.0); Imm Gran Abs Auto 0.02 X10*3/uL (0.00-0.03); Imm Gran Pct Auto 0.3 % (0.0-0.4); Lymphocytes Absolute Auto 1.7 X10*3/uL (1.2-4.9); Lymphocytes Percent Auto 25.6 % (20-40); Mean Corpuscular HGB Conc 32.3 g/dl (31.0-35.0); Mean Corpuscular Hemoglobin 30.8 pg (27.0-33.0); Mean Corpuscular Volume 95.3 fL (80.0-98.0); Mean Platelet Volume 11.4 fL (9.4-12.3); Monocytes Absolute Auto 0.3 X10*3/uL (0.1-1.2); Monocytes Percent Auto 5.1 % (2-11); Neutrophils Absolute Auto 4.5 x10*3/uL (2.0-8.3); Neutrophils Percent Auto 67.3 % (45-73); Platelet Count 321 X10*3/uL (160-400); Red Blood Count 3.86 X10*6/uL (4.20-5.50); Red Cell Distribution Width 12.9 % (11.0-16.0); White Blood Count 6.6 X10*3/uL (4.8-10.8)
[2025-02-08 07:44] LABS: Estimated Average Glucose 157 mg/dL; Hemoglobin A1c % 7.1 % (<6.0)
[2025-02-08 08:03] LABS: Alanine Aminotransferase 13 U/L (0-31); Albumin Level 4.1 g/dL (3.5-5.0); Alkaline Phosphatase 40 U/L (39-117); Anion Gap 11 (12-20); Aspartate Amino Transferase 20 U/L (5-31); Bilirubin Total 0.5 mg/dL (0.0-1.0); Blood Urea Nitrogen 13 mg/dL (9-16); Calcium 10.1 mg/dL (8.4-10.2); Carbon Dioxide 31 mmol/L (22-29); Chloride 106 mmol/L (96-108); Cholesterol 169 mg/dL (<200); Estimated Glomerular Filt Rate > 60; Glucose Fasting 135 mg/dL (60-99); HDL Cholesterol 52 mg/dL (>40); LDL Cholesterol Calculated 86 mg/dL (<100); Potassium 4.6 mmol/L (3.3-5.1); Sodium 143 mmol/L (135-145); Total Protein 6.7 g/dL (6.5-8.0); Triglycerides 156 mg/dL (<150)
[2025-02-08 08:20] LABS: Ferritin 25 ng/mL (10-250); Vitamin B12 464 pg/mL (200-900)
== END 2025-02-08 06:12 | disposition home or self-care (01) ==
LOC: HO.LAB 06:11
PROVIDERS: PCP Internal Medicine Medical Oncology; Visit Provider Internal Medicine Medical Oncology
DX: E78.5 Hyperlipidemia, unspecified (principal); E53.8 Deficiency of other specified B group vitamins; E11.9 Type 2 diabetes mellitus without complications; D64.9 Anemia, unspecified
CPT/HCPCS: 36415; 80053; 80061; 82607; 82728; 83036; 85025

== ENCOUNTER 2025-05-13 10:04 | Outpatient (REF) | payer MEDICARE, SELFPAY ==
--- OUTSIDE RECORDS SUMMARY | 2024-06-14 14:39 | XMS_ITS ---
Author Organization See Lee III, MD Address [address] [place] [address] [place] [address] Care Team Providers Care Teasel Setter Name Role Phone Dr. See Lee III Primary Care Provider [phone] REASON FOR VISIT New Refill Request Medications Medication SIG (Take, Route, Fr equency, Duration) Notes Start Date End Date Status Omeprazole 10 MG 1 capsule 30 minutes before morning meal Orally Once a day for 30 days Active Social History Sex Assigned At : Social History Observation Description Sex Assigned At Female Encounters Encounter Location Date Provider Diagnosis See Lee III, MD [address] [place] [address] [place] [address] 06/14/2024 See Lee Hyperlipidemia, unspecified hyperlipidemia type [...] Provider Name:See Lee , 08/17/2025 10:00:00 AM, [address] [place] [address] [place], [address], Provider Name:See Lee , 02/14/2026 10:00:00 AM, [address] [place] [address] [address], [place], [address], Progress Notes * Rachael MORA ADOB: 2 (84 yo F)Acc No.[id number]:06/14/2024 Patient: Rachael GRAY :1940 A ge:84 Y S ex:Female Address: [address], [place] * Refills Refill Omeprazole Capsule Delayed Release, 10 MG, Orally, 30, 1 capsule 30 minutes before morning meal, Once a day, 30 days, Refills=11 * true * Date: Generated for Mahendra turner/Raheem/Bhanuitting on: 0 05/13/2025 12:12 PM EDT
--- OUTSIDE RECORDS SUMMARY | 2024-08-23 14:57 | XMS_ITS ---
Author Organization See Lee III, MD Address [address] [place] [address] [place] [address] Care Team Providers Care Transferrer Name Role Phone Dr. See Lee III [...] Date Provider Diagnosis See Lee III, MD [address] [place] [address] [place] [address] 08/23/2024 See Lee Hyperlipidemia, unspecified hyperlipidemia type [...] Provider Name:See Lee , 08/17/2025 10:00:00 AM, [address] [place] [address] [place], [address], Provider Name:See Lee , 02/14/2026 10:00:00 AM, [address] [place] [address] [address], [place], [address], Progress Notes * Rachael MORA ADOB: 2 (84 yo F)Acc No.[id number]:08/23/2024 Patient: Rachael GRAY :1940 A ge:84 Y S ex:Female Address: [address], [place] [address] * Refills Refill Simvastatin Tablet, 40 MG, Orally, 90, 1 tablet in the evening, Once a day, 90 days, Refills=3 * true * Date: Generated for Mahendra turner/Raheem/Bhanuitting on: 0 05/13/2025 12:13 PM EDT
--- OUTSIDE RECORDS SUMMARY | 2024-09-15 12:30 | XMS_ITS ---
Author Organization See Lee III, MD Address [address] [place] [address] [place] [address] Care Team Providers Care Client Project Coordinator Name Role Phone Dr. See Lee III Primary Care Provider REASON FOR VISIT Annual Exam Social History Sex Assigned At : Social History Observation Description Sex Assigned At Female Encounters Encounter Location Date Provider Diagnosis See Lee III, MD [address] [place] [address] [place] [address] 09/15/2024 See Lee Plan Of Treatment Next Appt Details Provider Name:See Lee , 08/17/2025 10:00:00 AM, [address] [place] [address] [place], [address], Provider Name:See Lee , 02/14/2026 10:00:00 AM, [address] [place] [address] [place], [address], Progress Notes * Rachael MORA ADOB: 2 (85 yo F)Acc No.[id number]:09/15/2024 Progress Notes Patient: Rachael GRAY Provider: Adonis Lee MD :1940 A ge:84 Y S ex:Female Date:09/15/2024 Address:[address], [id number] Subjective: * Chief Complaints: * 1 . [...] 0 09/15/2024 Generated for Mahendra turner/Raheem/eTransmitting on: 0 05/13/2025 12:13 PM EDT
--- OUTSIDE RECORDS SUMMARY | 2025-01-17 14:45 | XMS_ITS ---
Author Organization See Lee III, MD Address [address] [place] [address] [place] [address] Care Team Providers Care Warranty Manager Name Role Phone Dr. See Lee III Primary Care Provider [phone] REASON FOR VISIT New Refill Request Medications Medication SIG (Take, Route, Fr equency, Duration) Notes Start Date End Date Status Atenolol 25 MG 1 tablet Orally Once a day for 90 days 07/06/2019 Active Social History Sex Assigned At : Social History Observation Description Sex Assigned At Female Encounters Encounter Location Date Provider Diagnosis See Lee III, MD [address] [place] [address] [place] [address] 01/17/2025 See Lee Hyperlipidemia, unspecified hyperlipidemia type [...] Provider Name:See Lee , 08/17/2025 10:00:00 AM, [address] [place] [address] [place], [address], Provider Name:See Lee , 02/14/2026 10:00:00 AM, [address] [place] [address] [address], [place], [address], Progress Notes * Rachael MORA ADOB: 2 (84 yo F)Acc No.[id number]:01/17/2025 Patient: Rachael GRAY :1940 A ge:84 Y S ex:Female Address:[address] [place] [address], [place] * Refills Refill Atenolol Tablet, 25 MG, Orally, 90, 1 tablet, Once a day, 90 days, Refills=3 * true * Date: Generated for Mahendra turner/Raheem/Bhanuitting on: 0 05/13/2025 12:13 PM EDT
--- OUTSIDE RECORDS SUMMARY | 2025-02-11 05:45 | XMS_ITS ---
Author Organization See Lee III, MD Address [address] [place] [address] [address] [place] [address] Care Team Providers Care Phosphatic Fertilizer Supervisor Name Role Phone Dr. See Lee III Primary Care Provider Allergies Allergen (clinical drug ingredient) Drug/Non Drug [...] Date Provider Diagnosis See Lee III, MD [address] [place] [address] [place] [address] 02/11/2025 See Lee Hyperlipidemia, unspecified hyperlipidemia type [...] She is under the care of a csr. Plan Of Treatment Medication Medication Name Sig [...] Name:See Lee , 08/17/2025 10:00:00 AM, [address] [facility] [address], [place], [address], Provider Name:See Lee , 02/14/2026 10:00:00 AM, [address] [facility] [place], [address], Progress Notes * Rachael MORA ADOB: 2 (84 yo F)Acc No.[id number]:02/11/2025 Progress Notes Patient: Raphael Rachael SANCHES Provider: [...] Medical History: * Surgical History: c holecystectomy [id number], all vaginal deliveries repair of bladder. 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 He is retired. 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 They have 2 [...] She is under the care of a csr. Plan: * Treatment: 2. H yperlipidemia, unspecified [...] No * Procedure Codes: 8 1002 URINE-NO [id number] MEASURE BLOOD OXYGEN LEVEL * Preventive Medicine: [...] 0 02/11/2025 Generated for Mahendra turner/Raheem/eTransmitting on: 0 05/13/2025 12:12 PM EDT History and Physical Notes * HPI (History [...] RECTAL EXAM: not examined PSYCH: alert, oriented, surgical coordinator perative with exam, cognitive function intact, good eye contact, speech clear, thought process logical, goal directed ORAL CAVITY: normal, unremarkable
--- NOTE | ~2025-05-13 | MM_ITS ---
EXAMINATION: MM SCREENING DIGITAL BREAST TOMOSYNTHESIS, BILATERAL CLINICAL INFORMATION: Screening. Asymptomatic. COMPARISON: Comparison made to multiple prior, most recent April 23, 2024, and most remote January 08, 2018. TECHNIQUE: Digital breast tomosynthesis is performed in mediolateral oblique and craniocaudal views along with computer-aided detection (CAD). Synthesized 2D images are generated from the tomosynthesis. Best possible images according to technologist's notes. FINDINGS: BREAST COMPOSITION: The breasts are heterogeneously dense, which may obscure small masses. RIGHT BREAST: Tissue marker from previous needle core biopsy. No significant masses, suspicious calcifications or other abnormalities are seen. LEFT BREAST: No significant masses, suspicious calcifications or other abnormalities are seen. MM/MM tomosynthesis screening BI IMPRESSION: BILATERAL BREASTS: Benign, no mammographic evidence of malignancy. Normal interval follow-up is recommended in 12 months. ASSESSMENT: BI-RADS: Category 2: Benign RECOMMENDATION: Routine annual mammography screening. FOLLOW-UP: 1 year F/U This examination should not preclude the clinical evaluation of a suspicious palpable abnormality. This patient's information was entered into a reminder system with a target due date for their next mammogram. Electronically signed by: Glynn Yap MD 05/14/2025 08:01 PM EDT
--- OUTSIDE RECORDS SUMMARY | 2025-05-13 12:13 | XMS_ITS | Patient Health Record ---
Author Organization See Lee III, MD Address [address] [place] [address] [address] [place] [address] Care Team Providers Care Analytical Chemist Name Role Phone Dr. See Lee III [...] 1.3 BLD 5-10 Negative - Menstrating No Complete Blood Count Auto Di ff Reviewed date:05/15/2024 09:44:20 AM Interpretation: Performing Lab:[facility], [address] [place] [phone] Notes/Report: White Blood Count 6.9 4.8-10.8 X10*3/uL Red Blood Count 4.03 4.20-5.50 X10*6/uL Hemoglobin 12.0 12.0-16.0 g/dl Hematocrit 38.1 37.0-47.0 % Mean Corpuscular Volume 94.5 80.0-98.0 fL Mean Corpuscular Hemoglobin 29.8 27.0-33.0 pg Mean Corpuscular HGB Conc 31.5 31.0-35.0 g/dl Red Cell Distribution Width 13.3 11.0-16.0 % Platelet Count 289 160-400 X10*3/uL Mean Platelet Volume 11.1 9.4-12.3 fL Neutrophils Percent Auto 65.3 45-73 % Imm Gran Pct Auto 0.1 0.0-0.4 % Lymphocytes Percent Auto 26.5 20-40 % Monocytes Percent Auto 6.5 2-11 % Eosinophils Percent Auto 1.2 0-4 % Basophils Percent Auto 0.4 0-2 % NRBC Pct Auto 0.0 0.0-0.2 /100WBC Neutrophils Absolute Auto 4.5 2.0-8.3 x10*3/u L Imm Gran Abs Auto 0.01 0.00-0.03 X10*3/uL Lymphocytes Absolute Auto 1.8 1.2-4.9 X10*3/u L Monocytes Absolute Auto 0.5 0.1-1.2 X10*3/uL Eosinophils Absolute Auto 0.1 0.0-0.4 X10*3/u L Basophils Absolute Auto 0.0 0.0-0.2 X10*3/uL NRBC Abs Auto 0.000 0.0-0.012 X10*3/uL Urinalysis and Microscopic Reviewed date:05/15/2024 09:44:20 AM Interpretation: Performing Lab:[facility], [address] [place] [phone] Notes/Report: Color Urine Yellow Appearance Urine Cloudy PH 6.0 5.0-9.0 Glucose Urine UA Negative Negative mg/dL Urine Blood Trace Negative Specific Allen - Urine 1.010 1.005-1.025 Urine Protein Negative Neg-Trace mg/dL Urine Ketones Negative Negative mg/dL Nitrite Urine Positive Negative Leukocyte Esterase Urine Large (3+) Negative RBC Urine 0-2 0-2 /HPF WBC Urine >50 0-5 /HPF Squamous Epithelial Cell Urine 3-5 0-2 /HPF Bacteria Urine 4+ None Seen Hyaline Casts Urine 0-2 0-2 /LPF Comprehensive [place]. Panel Fa st Reviewed date:05/15/2024 09:44:20 AM Interpretation: Performing Lab:[facility], [address] [place] [address] Notes/Report: Sodium 143 135-145 mmol/L Potassium 4.5 3.3-5.1 mmol/L Chloride 106 96-108 mmol/L Carbon Dioxide 29 22-29 mmol/L Anion Gap 13 12-20 Blood Urea Nitrogen 13 9-16 mg/dL Creatinine 0.87 0.5-1.4 mg/dL Estimated Glomerular Filt Rate > 60 NOTE: For -Panamanian individuals, multiply the result by 1.210. Chronic Kidney Disease: Estimated GFR < 60 mL/min/1.73m2 Severe Kidney Disease: Estimated GFR < 15 mL/min/1.73m2 Glucose Fasting 124 60-99 mg/dL A fasting glucose from 100-125 mg/dl is considered impaired (pre-diabetes). Calcium 10.3 8.4-10.2 mg/dL Bilirubin Total 0.3 0.0-1.0 mg/dL Aspartate Amino Transferase 13 5-31 U/L Alanine Aminotransferase 11 0-31 U/L Total Protein 7.0 6.5-8.0 g/dL Albumin Level 4.0 3.5-5.0 g/dL Alkaline Phosphatase 38 39-117 U/L Lipid Panel Reviewed date:05/15/2024 09:44:20 AM Interpretation: Performing Lab:[facility], [address] [place] [address] Notes/Report: Triglycerides 108 <150 mg/dL Desirable Triglyceride: less than 150 mg/dL Borderline High Triglyceride 150-199 mg/dL High Triglyceride: 200-499 mg/dL Very High Triglyceride: greater than or equal to 5OO mg/dL Cholesterol 149 <200 mg/dL Desirable Cholesterol: less than 200 mg/dL Borderline High Cholesterol: 200-239 mg/dL High Cholesterol: greater than 239 mg/dL LDL Cholesterol Calculated 74 <100 mg/dL Desirable LDL: less than 100 mg/dL Near Optimal/Above Optimal LDL: 110-129 mg/dL Borderline High LDL: 130-159 mg/dL High LDL: 160-189 mg/dL Very High LDL: greater than or equal to 190 mg/dL HDL Cholesterol 54 >40 mg/dL Desirable HDL: greater than 40 mg/dL Note: This HDL assay may give artificially low results in patients with liver disease. Microalbumin, Random Reviewed date:05/15/2024 09:44:20 AM Interpretation: Performing Lab:[address] [address] Notes/Report: Creatinine Urine 41.05 Microalbumin Urine 26.0 Microalbum/Creatinine Ratio Ur 63.3 <30 ug/mg cr Albumin/Creatinine Ratio Reference Ranges: Normal: < 30 ug/mg creatinine Microalbuminuria: 30 - 300 ug/mg creatinine Clinical Albuminuria: > 300 ug/mg creatinine Hemoglobin A1c Reviewed date:05/15/2024 09:44:20 AM Interpretation: Performing Lab:[address] [address] Notes/Report: Hemoglobin A1c % 6.6 <6.0 % Hemoglobin A1C Reference Range Adults: 4.8 - 6.0 % Non diabetic: < 6.0 % Goal: < 7.0 % Additional Action Suggested: > 8.0 % Note: Hemoglobin A1c results are invalid for patients with abnormal amounts of HbF. Blood transfusions may impact the HbA1c concentration in the patient sample. Estimated Average Glucose 143 eAG = Estimated average glucose which is %A1C expressed as average glucose, using the formula of the R8E-Llfaaak Average Glucose study (ADAG), Diabetes Care, Vol.31,#8, Mar. 2007 Diabetic Eye Exam Reviewed date:02/11/2025 10:10:10 AM Interpretation:undefined Performing Lab: Notes/Report: undefined Complete Blood Count Auto Di ff Reviewed date:02/11/2025 10:17:27 AM Interpretation: Performing Lab:[address] [address] Notes/Report: White Blood Count 6.6 4.8-10.8 X10*3/uL Red Blood Count 3.86 4.20-5.50 X10*6/uL Hemoglobin 11.9 12.0-16.0 g/dl Hematocrit 36.8 37.0-47.0 % Mean Corpuscular Volume 95.3 80.0-98.0 fL Mean Corpuscular Hemoglobin 30.8 27.0-33.0 pg Mean Corpuscular HGB Conc 32.3 31.0-35.0 g/dl Red Cell Distribution Width 12.9 11.0-16.0 % Platelet Count 321 160-400 X10*3/uL Mean Platelet Volume 11.4 9.4-12.3 fL Neutrophils Percent Auto 67.3 45-73 % Imm Gran Pct Auto 0.3 0.0-0.4 % Lymphocytes Percent Auto 25.6 20-40 % Monocytes Percent Auto 5.1 2-11 % Eosinophils Percent Auto 1.1 0-4 % Basophils Percent Auto 0.6 0-2 % NRBC Pct Auto 0.0 0.0-0.2 /100WBC Neutrophils Absolute Auto 4.5 2.0-8.3 x10*3/u L Imm Gran Abs Auto 0.02 0.00-0.03 X10*3/uL Lymphocytes Absolute Auto 1.7 1.2-4.9 X10*3/u L Monocytes Absolute Auto 0.3 0.1-1.2 X10*3/uL Eosinophils Absolute Auto 0.1 0.0-0.4 X10*3/u L Basophils Absolute Auto 0.0 0.0-0.2 X10*3/uL NRBC Abs Auto 0.000 0.0-0.012 X10*3/uL Comprehensive [place]. Panel Fa st Reviewed date:02/11/2025 10:17:27 AM Interpretation: Performing Lab:[facility], [address] [place] [phone] Notes/Report: Sodium 143 135-145 mmol/L Potassium 4.6 3.3-5.1 mmol/L Chloride 106 96-108 mmol/L Carbon Dioxide 31 22-29 mmol/L Anion Gap 11 12-20 Blood Urea Nitrogen 13 9-16 mg/dL Creatinine 0.77 0.5-1.4 mg/dL Estimated Glomerular Filt Rate > 60 Chronic Kidney Disease: Estimated GFR < 60 mL/min/1.73m2 Severe Kidney Disease: Estimated GFR < 15 mL/min/1.73m2 Glucose Fasting 135 60-99 mg/dL A fasting glucose of 126 mg/dl or greater on more than one occasion is considered diagnostic of diabetes. Calcium 10.1 8.4-10.2 mg/dL Bilirubin Total 0.5 0.0-1.0 mg/dL Aspartate Amino Transferase 20 5-31 U/L Alanine Aminotransferase 13 0-31 U/L Total Protein 6.7 6.5-8.0 g/dL Albumin Level 4.1 3.5-5.0 g/dL Alkaline Phosphatase 40 39-117 U/L Ferritin Reviewed date:02/11/2025 10:17:27 AM Interpretation: Performing Lab:[facility], [address] [place] [phone] Notes/Report: Ferritin 25 10-250 ng/mL Lipid Panel Reviewed date:02/11/2025 10:17:28 AM Interpretation: Performing Lab:[facility], [address] [place] [phone] Notes/Report: Triglycerides 156 <150 mg/dL Desirable Triglyceride: less than 150 mg/dL Borderline High Triglyceride 150-199 mg/dL High Triglyceride: 200-499 mg/dL Very High Triglyceride: greater than or equal to 5OO mg/dL Cholesterol 169 <200 mg/dL Desirable Cholesterol: less than 200 mg/dL Borderline High Cholesterol: 200-239 mg/dL High Cholesterol: greater than 239 mg/dL LDL Cholesterol Calculated 86 <100 mg/dL Desirable LDL: less than 100 mg/dL Near Optimal/Above Optimal LDL: 110-129 mg/dL Borderline High LDL: 130-159 mg/dL High LDL: 160-189 mg/dL Very High LDL: greater than or equal to 190 mg/dL HDL Cholesterol 52 >40 mg/dL Desirable HDL: greater than 40 mg/dL Note: This HDL assay may give artificially low results in patients with liver disease. Vitamin B12 Reviewed date:02/11/2025 10:17:27 AM Interpretation: Performing Lab:[facility], [address] [place] [phone] Notes/Report: Vitamin B12 464 200-900 pg/mL NORMAL 200-900 PG/ML INDETERMINATE 160-199 PG/ML DEFICIENT < 160 PG/ML Hemoglobin A1c Reviewed date:02/11/2025 10:17:27 AM Interpretation: Performing Lab:[address] [address] Notes/Report: Hemoglobin A1c % 7.1 <6.0 % Hemoglobin A1C Reference Range Adults: 4.8 - 6.0 % Non diabetic: < 6.0 % Goal: < 7.0 % Additional Action Suggested: > 8.0 % Note: Hemoglobin A1c results are invalid for patients with abnormal amounts of HbF. Blood transfusions may impact the HbA1c concentration in the patient sample. Estimated Average Glucose 157 eAG = Estimated average glucose which is %A1C expressed as average glucose, using the formula of the V1M-Akgqtpz Average Glucose study (ADAG), Diabetes Care, Vol.31,#8, Mar. 2007 Reason For Referral No Information Medications Medication SIG (Take, Route, Frequency, Duration) [...] breakfast Orally Once a day 10/23/2019 Active Simvastatin 40 MG 1 tablet in the even ing Orally Once a day Active Omeprazole 10 MG 1 capsule 30 minutes before morning meal Orally Once a day Active Atenolol 25 MG 1 tablet Orally Once a day 07/06/2019 Active Immunizations Vaccine Route Administration Date Status Comme nts COVID- 19 Vaccine Unknown 09/27/2020 Administered COVID- 19 Vaccine Unknown 10/18/2020 Administered PCV13 Unknown 06/01/2016 Administered Zostavax Unknown 07/25/2013 Administered COVID PFIZER Unknown 10/18/2020 Administered COVID PFIZER Unknown 09/27/2020 Administered COVID PFIZER Unknown 05/22/2021 Administered Influenza High Dose Quadrivalent Unknown 05/23/2022 Adm inistered COVID 19 Moderna Unknown 03/06/2022 Administered Influenza High Dose Quadrivalent Unknown 05/22/2023 Adm inistered Comirnaty Pfizer COVID-19 12+ Unknown 12/11/2024 Admini stered Comirnaty Pfizer COVID-19 12+ Unknown 05/22/2024 Admini stered Fluzone High-Dose (HD-IIV3) Unknown 05/30/2018 Administ ered Comirnaty Pfizer COVID-19 12+ Unknown 12/06/2023 Admini stered Fluzone High-Dose (HD-IIV3) Unknown 05/22/2024 Administ ered Fluzone High-Dose (HD-IIV3) Unknown 06/01/2016 Administ ered COVID Pfizer Bivalent Unknown 12/10/2022 Administered Fluzone High-Dose (HD-IIV3) Unknown 06/06/2019 Administ ered COVID Pfizer Bivalent Unknown 06/26/2022 Administered Comirnattyler Pfizer COVID-19 12+ Unknown 05/22/2023 Admini stered Fluzone High-Dose (HD-IIV3) Unknown 06/07/2017 Administ ered Social History Tobacco Use: Social History Observation [...] Never (0 point) Points 4 Interpretation Positive Problems Problem Type SNOMED Code ICD Code Onset Dates Problem Status W/U Status Risk Notes Problem Vitamin B12 deficiency (non anemic) (85333289) B12 deficiency (E53.8) Active confirmed The B12 level is in the normal range in current therapy was continued. Problem 39905057 Iron deficiency (E61.1) Active confirmed She is taking her iron, but forgets to do it sometimes. Her hematocrit remains low volume are normal. The ferritin level is 10 which is the low limit of normal. We discussed various wayys to help her remember to take her medication daily. Problem 75714567 Essential hypertension (I10) Active confirmed Her blood pressure today is 120/70 and no change in her regimen was necessary. Problem 97612702 Alopecia (L65.9) Active confirmed Her hair is thinning diffusely and not in patches. Blood work with thyroid functions have been ordered. Problem 431234094 Anemia, unspecified type (D64.9) Active confirmed Her hematocrit is 36.8 with a normal mean cell volume. She has had no sign of bleeding. Current therapy was continued without change. Problem Hyperlipidaemia (59925800) Hyperlipidemia, unspecified hyperlipidemia type (E78.5) Active confirmed The current fasting lipid profile shows good control of her lipids and no change in her regimen was made. She was encouraged to lose weight and consume a healthy diet and exercise regularly. Problem 364970837 Type 2 diabetes mellitus without complication, without long-term current use of insulin (E11.9) Active confirmed Hemoglobin A1c is 6.9. No change in her medications was made. She has lost 6 pounds and is consuming a healthy diabetic diet. Problem Disorder due to type 2 diabetes mellitus (131889273) Type 2 diabetes mellitus with complication, without long-term current use of insulin (E11.8) Active confirmed The hemoglobin A1c has increased to 7.1. We discussed her weight diet and medications at length. Problem 183629040 Osteopenia of lumbar spine (M85.88) Active confirmed She was continued on her current regimen. His bone density. We will be done frequently. She will take calcium supplements and vitamin D. Problem 534161806 History of uterine prolapse (Z87.42) Active confirmed She is using the pessary and is quite satisfied with the results. She is under the care of a head sawyer automatic . Vital Signs Heart Rate 54 /min 02/11/2025 Temperature 98.4 degrees Fahrenheit 02/11/2025 Respiratory Rate 16 /min 02/11/2025 Oximetry 98 % 02/11/2025 Blood pressure diastolic 56 mm Hg 02/11/2025 Height 64 in 02/11/2025 Blood pressure systolic 134 mm Hg 02/11/2025 Weight 140 lbs 02/11/2025 BMI 24.03 kg/m2 02/11/2025 Encounters Encounter Location Date Provider Diagnosis See Lee III, MD [address] [place] [address] [place] [address] 05/15/2024 See Lee Hyperlipidemia, unspecified hyperlipidemia type E78.5 ; Type 2 diabetes mellitus with complication, without long-term current use of insulin E11.8 ; B12 deficiency E53.8 and Anemia, unspecified type D64.9 See Lee III, MD [address] [place] [address] [place] [address] 02/11/2025 See Lee Hyperlipidemia, unspecified hyperlipidemia type E78.5 ; Type 2 diabetes mellitus with complication, without long-term current use of insulin E11.8 ; B12 deficiency E53.8 ; Anemia, unspecified type D64.9 and History of uterine prolapse Z87.42 See Lee III, MD [address] [place] [address] [address] [place] [address] 05/14/2024 See Lee Hyperlipidemia, unspecified hyperlipidemia type E78.5 See Lee III, MD [address] [place] [address] [address] [place] [address] 06/14/2024 See Lee Hyperlipidemia, unspecified hyperlipidemia type E78.5 See Lee III, MD [address] [place] [address] [address] [place] [address] 08/23/2024 See Rosa Hyperlipidemia, unspecified hyperlipidemia type E78.5 See Lee III, MD [address] [place] [address] [address] [place] [address] 01/17/2025 See Lee Hyperlipidemia, unspecified hyperlipidemia type [...] No change in her medication was necessary. 02/11/2025 Hyperlipidemia, unspecified hyperlipidemia type (ICD-10 - [...] her weight diet and medications at length. 05/14/2024 Hyperlipidemia, unspecified hyperlipidemia type (ICD-10 - E78.5) The current fasting lipid profile shows good control of her lipids and no change in her regimen was made. She was encouraged to lose weight and consume a healthy diet and exercise regularly. 06/14/2024 Hyperlipidemia, unspecified hyperlipidemia type (ICD-10 - E78.5) The current fasting lipid profile shows good control of her lipids and no change in her regimen was made. She was encouraged to lose weight and consume a healthy diet and exercise regularly. 08/23/2024 Hyperlipidemia, unspecified hyperlipidemia type (ICD-10 - E78.5) The current fasting lipid profile shows good control of her lipids and no change in her regimen was made. She was encouraged to lose weight and consume a healthy diet and exercise regularly. 01/17/2025 Hyperlipidemia, unspecified hyperlipidemia type (ICD-10 - E78.5) The current fasting lipid profile shows good control of her lipids and no change in her regimen was made. She was encouraged to lose weight and consume a healthy diet and exercise regularly. 05/15/2024 B12 deficiency (ICD-10 - E53.8) Her mean cell volume is in the normal she was continuing current therapy without change. 02/11/2025 B12 deficiency (ICD-10 - E53.8) The B12 level is in the normal range in current therapy was continued. 05/15/2024 Anemia, unspecified type (ICD-10 - D64.9) She has a mild normochromic normocytic anemia and does not appear to be deficient in B12 or iron. 02/11/2025 Anemia, unspecified type (ICD-10 - D64.9) Her hematocrit is 36.8 with a normal mean cell volume. She has had no sign of bleeding. Current therapy was continued without change. 02/11/2025 History of uterine prolapse (ICD-10 - Z87.42) She is using the pessary and is quite satisfied with the results. She is under the care of a head sawyer automatic. Plan Of Treatment Pending Test Test Name Order Date PROFILE, FASTING (COMPREHENSIVE METABOLI C) 05/15/2024 PROFILE, FASTING (COMPREHENSIVE METABOLI C) 02/24/2018 PROFILE, FASTING (COMPREHENSIVE METABOLI C) 02/11/2025 PROFILE, FASTING (COMPREHENSIVE METABOLI C) 05/10/2021 PROFILE, FASTING (COMPREHENSIVE METABOLI C) 01/04/2023 PROFILE, FASTING (COMPREHENSIVE METABOLI C) 10/04/2022 PROFILE, FASTING (COMPREHENSIVE METABOLI C) 06/24/2023 PROFILE, FASTING (COMPREHENSIVE METABOLI C) 02/10/2020 PROFILE, FASTING (COMPREHENSIVE METABOLI C) 12/25/2021 PROFILE, FASTING (COMPREHENSIVE METABOLI C) 05/30/2022 PROFILE, FASTING (COMPREHENSIVE METABOLI C) 01/31/2022 PROFILE, FASTING (COMPREHENSIVE METABOLI C) 09/13/2023 PROFILE, FASTING (COMPREHENSIVE METABOLI C) 04/05/2023 PROFILE, FASTING (COMPREHENSIVE METABOLI C) 01/17/2024 PROFILE, FASTING (COMPREHENSIVE METABOLI C) 05/28/2018 HEMOGLOBIN A1C (GLYCOHEMOGLOBIN) 018 HEMOGLOBIN A1C (GLYCOHEMOGLOBIN) 023 HEMOGLOBIN A1C (GLYCOHEMOGLOBIN) 021 HEMOGLOBIN A1C (GLYCOHEMOGLOBIN) 018 HEMOGLOBIN A1C (GLYCOHEMOGLOBIN) 021 HEMOGLOBIN A1C (GLYCOHEMOGLOBIN) 023 HEMOGLOBIN A1C (GLYCOHEMOGLOBIN) 020 HEMOGLOBIN A1C (GLYCOHEMOGLOBIN) 022 HEMOGLOBIN A1C (GLYCOHEMOGLOBIN) 023 HEMOGLOBIN A1C (GLYCOHEMOGLOBIN) 022 LIPID PANEL 04/05/2023 LIPID PANEL 01/31/2022 LIPID PANEL 05/28/2018 LIPID PANEL 01/04/2023 LIPID PANEL 02/24/2018 LIPID PANEL 10/04/2022 LIPID PANEL 02/10/2020 LIPID PANEL 12/25/2021 FREE T4 (FT4) 05/10/2021 TSH (THYROID STIMULATING HORMONE) 2020 FERRITIN 12/25/2021 B12 05/10/2021 B12 04/05/2023 B12 04/19/2021 MICROALBUMIN, RANDOM 01/31/2022 MICROALBUMIN, RANDOM 05/28/2018 MICROALBUMIN, RANDOM 10/04/2022 CBC w DIFF 02/10/2020 CBC w DIFF 10/04/2022 CBC w DIFF 05/10/2021 CBC w DIFF 12/25/2021 CBC w DIFF 02/11/2025 CBC w DIFF 04/05/2023 CBC w DIFF 01/31/2022 CBC w DIFF 01/04/2023 CBC w DIFF 05/28/2018 CBC w DIFF 02/24/2018 CBC w DIFF 05/30/2022 URINALYSIS (UA) 01/17/2024 INTRINSIC FACTOR ANTIBODIES 04/19/2021 CBC WITH AUTO DIFF 09/13/2023 CBC WITH AUTO DIFF 05/15/2024 CBC WITH AUTO DIFF 01/17/2024 CBC WITH AUTO DIFF 06/24/2023 RETIC 12/25/2021 Ferritin 09/13/2023 Ferritin 05/15/2024 Ferritin 02/11/2025 Ferritin 06/24/2023 Lipid Panel 05/30/2022 Lipid Panel 09/13/2023 Lipid Panel 05/10/2021 Lipid Panel 01/17/2024 Lipid Panel 05/15/2024 Lipid Panel 02/11/2025 Lipid Panel 06/24/2023 Vitamin B12 06/24/2023 Vitamin B12 09/13/2023 Vitamin B12 05/15/2024 Vitamin B12 02/06/2021 Vitamin B12 02/11/2025 Vitamin D 25-OH Total 05/30/2022 Intrinsic Factor Antibodies 02/06/2021 Microalbumin, Random 02/11/2025 Microalbumin, Random 06/24/2023 Microalbumin, Random 01/17/2024 Routine Culture 05/10/2023 Hemoglobin A1c 05/15/2024 Hemoglobin A1c 02/11/2025 Hemoglobin A1c 06/24/2023 Hemoglobin A1c 09/13/2023 Hemoglobin A1c 01/17/2024 Next Appt Details Provider Name:See Lee , 08/17/2025 10:00:00 AM, [address] [place] [address] [address], [place], [address], Provider Name:See Cesar Rosa , 02/14/2026 10:00:00 AM, [address] [place] [address] [address], [place], [address], Insurance Providers Payer Name Payer Address Payer Phone Subscriber Number Group Number Insured Name Patient Relationship to Insured Coverage Start Date Coverage End Date [facility] [address] [place] [phone] [id number] [facility] Rachael Mora Self - patient is the insured Medical (General) History Medical History History ICD Code Uterine prolapse N81.4 Tinea unguium B35.1 diabetes mellitus hyperlipidemia trigger finger right hand, fourth digit history of cholelithiasis fracture of the right distal tibia 2013 and a fall calcific tendinitis right shoulder 2015 osteopenia by bone marrow density test J oren 2014 overweight vitamin B12 deficiency Surgical History Surgery Date(Month/Year) repair of bladder. After second delivery , all vaginal deliveries cholecystectomy 1997
== END 2025-05-13 10:05 | disposition home or self-care (01) ==
LOC: HO.MAMMO 10:04
PROVIDERS: PCP Internal Medicine Medical Oncology; Visit Provider Internal Medicine Medical Oncology
DX: Z12.31 Encounter for screening mammogram for malignant neoplasm of breast (principal)
CPT/HCPCS: 77063; 77067

== ENCOUNTER → 2025-05-13 10:15 | Outpatient (BNV) | payer MEDICARE, SELFPAY | PROVIDERS: PCP Internal Medicine Medical Oncology; Visit Provider Radiology Body Imaging | DX: Z12.31 Encounter for screening mammogram for malignant neoplasm of breast (principal) | CPT/HCPCS: 77063; 77067 ==

== ENCOUNTER 2025-08-14 07:15 | Outpatient (REF) | payer MEDICARE, SELFPAY ==
--- OUTSIDE RECORDS SUMMARY | 2024-05-14 09:45 | XMS_ITS ---
Author Organization See Lee III, MD Address [address] [place] [address] [place] [address] Care Team Providers Care Instructor Hairspring Name Role Phone Dr. See Lee III Primary Care Provider REASON FOR VISIT New Refill Request Medications Medication SIG (Take, Route, Fr equency, Duration) Notes Start Date End Date Status metFORMIN HCl 500 MG 2 Tablets Orally Tw ice a day for 90 days Active Social History Sex Assigned At : Social History Observation Description Sex Assigned At Female Encounters Encounter Location Date Provider Diagnosis See Lee III, MD [address] [place] [address] [place] [address] 05/14/2024 See Lee Hyperlipidemia, unspecified hyperlipidemia type E78.5 Assessments Encounter Date Diagnosis (ICD Code) Assessment Notes Treat ment Notes Treatment Clinical Notes 05/14/2024 Hyperlipidemia, unspecified hyperlipidemia type (ICD-10 - E78.5) The current fasting lipid profile shows good control of her lipids and no change in her regimen was made. She was encouraged to lose weight and consume a healthy diet and exercise regularly. Plan Of Treatment Medication Medication Name Sig Start Date Stop Date Notes metFORMIN HCl 500 MG 2 Tablets Orally Tw ice a day for 90 days Next Appt Details Provider Name:See Lee , 08/17/2025 10:00:00 AM, [address] [place] [address] [place], [address], Provider Name:See Lee , 02/14/2026 10:00:00 AM, [address] [place] [address] [address], [address], [place], [id number], Progress Notes * Rachael MORA ADOB: [birth year] (84 yo F)Acc No.[id number]:05/14/2024 Patient: Raphael AZAMAndrzejRachael :1940 A ge:84 Y S ex:Female Address: [address], [place] [address] * Refills Refill metFORMIN HCl Tablet, 500 MG, Orally, 360 Tablet, 2 Tablets, Twice a day, 90 days, Refills=3 * true * Date: Generated for Mahendra turner/Raheem/Bhanuitting on: 10/15/2024 07:17 AM EST
--- OUTSIDE RECORDS SUMMARY | 2024-05-15 04:30 | XMS_ITS ---
Author Organization See Lee III, MD Address [address] [place] [address] DR CAMPBELL Janett GUI[place]MOGRE[place]ON [place] [address] Care Team Providers Care Core Manager Name Role Phone Dr. See Lee III Primary Care Provider [phone] Allergies Allergen (clinical drug ingredient) Drug/Non Drug Allergy documented on EMR Reaction Allergy Type Onset Date Status Seasonal IC Unknown Drug Allergy Activ e fentanyl Fentanyl Unknown Drug Allergy Active REASON FOR VISIT Diabetes, Iron deficiency, Hyperlipidemia, Hypertension, Osteopenia Medications Medication SIG (Take, Route, Frequency, Duration) Notes Start Date End Date Status Iron (Ferrous Sulfate) 325 (65 Fe) MG 1 tablet Orally Once every two days Active Omeprazole 10 MG 1 capsule 30 minutes before morning meal Orally Once a day Active Simvastatin 40 MG 1 tablet in the even ing Orally Once a day Active glipiZIDE 5 MG 1 tablet 30 minutes before breakfast Orally Once a day 10/23/2019 Active metFORMIN HCl 500 MG 2 Tablets Orally Tw ice a day Active Atenolol 25 MG 1 tablet Orally Once a day 07/06/2019 Active Lisinopril 2.5 MG 1 tablet Orally Once a day 09/23/2019 Active Social History Tobacco Use: Social History Observation Description Date Details (start date - stop date) Never Smoker NA - NA Sex Assigned At : Social History Observation Description Sex Assigned At Female Tobacco Use/Smoking Question Answer Notes Patient is a nonsmoker Additional Findings: Tobacco Non-User Aggressive non-smoker Problems Problem Type SNOMED Code ICD Code Onset Dates Problem Status W/U Status Risk Notes Problem [id number] Anemia, unspecified type (D64.9) Active confirmed Her hematocrit is 36.8 with a normal mean cell volume. She has had no sign of bleeding. Current therapy was continued without change. Problem Disorder due to type 2 diabetes mellitus ([id number]) Type 2 diabetes mellitus with complication, without long-term current use of insulin (E11.8) Active confirmed The hemoglobin A1c has increased to 7.1. We discussed her weight diet and medications at length. Vital Signs Temperature 98.1 degrees Fahrenheit 05/15/20 24 Blood pressure systolic 145 mm Hg 05/15/20 24 Blood pressure diastolic 61 mm Hg 024 Heart Rate 52 /min 05/15/2024 Height 64 in 05/15/2024 Weight 142 lbs 05/15/2024 BMI 24.37 kg/m2 05/15/2024 Encounters Encounter Location Date Provider Diagnosis See Lee III, MD [address] [place] [address] [place] [address] 05/15/2024 See Lee Hyperlipidemia, unspecified hyperlipidemia type E78.5 ; Type 2 diabetes mellitus with complication, without long-term current use of insulin E11.8 ; B12 deficiency E53.8 and Anemia, unspecified type D64.9 Assessments Encounter Date Diagnosis (ICD Code) Assessment Notes Treat ment Notes Treatment Clinical Notes 05/15/2024 Hyperlipidemia, unspecified hyperlipidemia type (ICD-10 - E78.5) The current fasting lipid profile shows good control of her lipids and no change in her regimen was made. She was encouraged to lose weight and consume a healthy diet and exercise regularly. 05/15/2024 Type 2 diabetes mellitus with complication, without long-term current use of insulin (ICD-10 - E11.8) Her hemoglobin A1c is 6.6. Dictations. Her weight is in the normal range. No change in her medication was necessary. 05/15/2024 B12 deficiency (ICD-10 - E53.8) Her mean cell volume is in the normal she was continuing current therapy without change. 05/15/2024 Anemia, unspecified type (ICD-10 - D64.9) She has a mild normochromic normocytic anemia and does not appear to be deficient in B12 or iron. Plan Of Treatment Medication Medication Name Sig Start Date Stop Date Notes Iron (Ferrous Sulfate) 325 ( 65 Fe) MG 1 tablet Orally Once every two days Omeprazole 10 MG 1 capsule 30 minutes before morning meal Orally Once a day Simvastatin 40 MG 1 tablet in the even ing Orally Once a day glipiZIDE 5 MG 1 tablet 30 minutes before breakfast Orally Once a day 10/23/2019 metFORMIN HCl 500 MG 2 Tablets Orally Twice a day Atenolol 25 MG 1 tablet Orally Once a day 07/06/2019 Lisinopril 2.5 MG 1 tablet Orally Once a day 09/23/2019 Pending Test Test Name Order Date PROFILE, FASTING (COMPREHENSIVE METABOLI C) 05/15/2024 CBC WITH AUTO DIFF 05/15/2024 Ferritin 05/15/2024 Lipid Panel 05/15/2024 Vitamin B12 05/15/2024 Hemoglobin A1c 05/15/2024 Next Appt Details Follow Up: As Scheduled, Radha son: OV Provider Name:See Lee , 08/17/2025 10:00:00 AM, [address] [place] [address] [address], [place], [phone], Provider Name:See Lee , 02/14/2026 10:00:00 AM, [address] [place] [address] [address], [place], [phone], Progress Notes * MORARachael SUN ADOB: 2 (84 yo F)Acc No.[id number]:05/15/2024 Progress Notes Patient: Rachael GRAY Provider: Adonis Lee MD :1940 A ge:84 Y S ex:Female Date:05/15/2024 Address:[address] [place] [address] BRITT, [place] [phone] Subjective: * Chief Complaints: * D iabetesIron deficiencyHyperlipidemiaHypertensionOsteopenia * HPI: C OVID-19 Screening: She returns to the office for a scheduled visit for medical management. Her last visit she has been healthy and well. She has no new problems today. She is taking no new medications. He denies any chest pain shortness of breath or bleeding. Her blood work was available and was reviewed with her in detail.Her blood pressure was slightly high with a systolic of 145.. Questions H ave you experienced fever, chills, cough, sore throat, shortness of breath, difficulty breathing, muscle aches, loss of taste or smell? N o H ave you been exposed to the virus within the last 10 days? Y es Exposed on Friday 05/11 Tested Sunday 05/13 was Negative. Feels she has a slight cold runny nose. H ave you travelled internationally in the last 10 days? N o H ave you been exposed to COVID-19 in the past? N o * ROS: G eneral/Constitutional: pain o nly normal aches and pains. C hills d enies.?Fatigue a dmits. F ever d enies. E NT: Decreased hearing d enies. R espiratory: Cough d enies. C ardiovascular: Chest pain with exertion d enies. D yspnea on exertion?denies. S hortness of breath d enies. G astrointestinal: Constipation d enies. D ecreased appetite d enies.?Diarrhea d enies. H eartburn d enies. N ausea d enies. R ectal bleeding?denies. V omiting d enies. H ematology: bruising d enies. p etechiae d enies. S wollen glands n one have been noted. G enitourinary: Frequent urination a small amount. M usculoskeletal: Muscle aches d enies. P ainful joints d enies. S ciatica d enies. W eakness d enies. S kin: Itching d enies. R lakesha d enies. S kin lesion(s)?denies. N eurologic: Difficulty speaking d enies. D izziness d enies.?Headache d enies. L ow back pain d enies. P sychiatric: Depressed mood d enies. * Medical History: * Surgical History: c holecystectomy [id number], all vaginal deliveries repair of bladder. After second delivery * Hospitalization/Major Diagno stic Procedure: D enies Past Hospitalization * Family History: F ather: , diagnosed with HTN, CVD in 43. M other: , diagnosed with Cancer. C hildren: peripheral arterial disease, diagnosed with DM. S tre: alive, diagnosed with CVD. 2 brother(s) , 1 sister(s) . 2 son(s) . . One of her sons is diabetic with complications, Renal Failure and doing Dialysis. She has 2 half-brothers, one of whom at the age of 59. She has 1 half- sister. She had 3 children. One child early of our H complications. She has 2 sons. One, Austen, is diabetic. The other, Apolinar, smokes cigarettes and has peripheral arterial disease with [address] * Social History: T obacco Use: T obacco Use/Smoking P lashon is a n onsmoker A dditional Findings: Tobacco Non-User A ggressive non-smoker S he has been to [place], [place], for 53 years. 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 He is retired. 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 They have 2 surviving children, sons. * Medications: T akingIron (Ferrous Sulfate) 325 (65 Fe) MG Tablet 1 tablet Orally Once every two days Lisinopril 2.5 MG Tablet 1 tablet Orally Once a day glipiZIDE 5 MG Tablet 1 tablet 30 minutes before breakfast Orally Once a day metFORMIN HCl 500 MG Tablet 2 Tablets Orally Twice a day Omeprazole 10 MG Capsule Delayed Release 1 capsule 30 minutes before morning meal Orally Once a day Simvastatin 40 MG Tablet 1 tablet in the evening Orally Once a day Atenolol 25 MG Tablet 1 tablet Orally Once a day Medication List reviewed and reconciled with the patientTaking Iron (Ferrous Sulfate) 325 (65 Fe) MG Tablet 1 tablet Orally Once every two days Taking Lisinopril 2.5 MG Tablet 1 tablet Orally Once a day Taking glipiZIDE 5 MG Tablet 1 tablet 30 minutes before breakfast Orally Once a day Taking metFORMIN HCl 500 MG Tablet 2 Tablets Orally Twice a day Taking Omeprazole 10 MG Capsule Delayed Release 1 capsule 30 minutes before morning meal Orally Once a day Taking Simvastatin 40 MG Tablet 1 tablet in the evening Orally Once a day Taking Atenolol 25 MG Tablet 1 tablet Orally Once a day Medication List reviewed and reconciled with the patient * Allergies: F entanylSeasonal ICno[Allergies Verified] Objective: * Vitals: H t: 64, Wt:142, BMI:24.37, BP:145/61, HR:52, Temp:98.1, Wt-k.41. * P ast Orders: Imaging:MM tomosynthesis scr eening BI * Performed Date 04/23/2024 02/20/2023 01/18/2021 10:30 AM 10:30 AM 08:15 AM Order Date 04/23/2024 02/20/2023 01/18/2021 * Lab:Microalbumin, Random * Collection Date 05/13/2024 09/06/2023 01/01/2023 Collection Time 06:35 AM 07:45 AM 06:43 AM Order Date 05/13/2024 09/06/2023 01/01/2023 Creatinine Urine 41.05 (Ref Range: mg/dL) 76.75 (Ref Range: mg/dL) 112.74 (Ref Range: mg/dL) Microalbumin Urine 26.0 (Ref Range: mg/L) 29.0 (Ref Range: mg/L) 7.0 (Ref Range: mg/L) Microalbum Creatinine Ratio Ur 63.3 H (Ref Range: <30 ug/mg cr) 37.7 H (Ref Range: <30 ug/mg cr) 6.2 (Ref Range: ug/mg cr) * Lab:Hemoglobin A1c * Collection Date 05/13/2024 01/15/2024 09/06/2023 Collection Time 06:36 AM 06:35 AM 07:45 AM Order Date 05/13/2024 01/15/2024 09/06/2023 Hemoglobin A1c % 6.6 H (Ref Range: <6.0 %) 6.9 H (Ref Range: <6.0 %) 6.9 H (Ref Range: <6.0 %) Estimated Average Glucose 143 (Ref Range: mg/dL) 151 (Ref Range: mg/dL) 151 (Ref Range: mg/dL) * Lab:Complete Blood Count Aut o Diff * Collection Date 05/13/2024 01/15/2024 09/06/2023 Collection Time 06:36 AM 06:35 AM 07:45 AM Order Date 05/13/2024 01/15/2024 09/06/2023 White Blood Count 6.9 (Ref Range: 4.8-10.8 X10*3/uL) 5.9 (Ref Range: 4.8-10.8 X10*3/uL) 6.4 (Ref Range: 4.8-10.8 X10*3/uL) Red Blood Count 4.03 L (Ref Range: 4.20-5.50 X10*6/uL) 3.96 L (Ref Range: 4.20-5.50 X10*6/uL) 3.98 L (Ref Range: 4.20-5.50 X10*6/uL) Hemoglobin 12.0 (Ref Range: 12.0-16.0 g/dl) 12.0 (Ref Range: 12.0-16.0 g/dl) 11.7 L (Ref Range: 12.0-16.0 g/dl) Hematocrit 38.1 (Ref Range: 37.0-47.0 %) 37.2 (Ref Range: 37.0-47.0 %) 37.0 (Ref Range: 37.0-47.0 %) Mean Corpuscular Volume 94.5 (Ref Range: 80.0-98.0 fL) 93.9 (Ref Range: 80.0-98.0 fL) 93.0 (Ref Range: 80.0-98.0 fL) Mean Corpuscular Hemoglobin 29.8 (Ref Range: 27.0-33.0 pg) 30.3 (Ref Range: 27.0-33.0 pg) 29.4 (Ref Range: 27.0-33.0 pg) Mean Corpuscular HGB Conc 31.5 (Ref Range: 31.0-35.0 g/dl) 32.3 (Ref Range: 31.0-35.0 g/dl) 31.6 (Ref Range: 31.0-35.0 g/dl) Red Cell Distribution Width 13.3 (Ref Range: 11.0-16.0 %) 13.6 (Ref Range: 11.0-16.0 %) 13.3 (Ref Range: 11.0-16.0 %) Platelet Count 289 (Ref Range: 160-400 X10*3/uL) 300 (Ref Range: 160-400 X10*3/uL) 320 (Ref Range: 160-400 X10*3/uL) Mean Platelet Volume 11.1 (Ref Range: 9.4-12.3 fL) 11.6 (Ref Range: 9.4-12.3 fL) 11.3 (Ref Range: 9.4-12.3 fL) Neutrophils Percent Auto 65.3 (Ref Range: 45-73 %) 60.3 (Ref Range: 45-73 %) 70.9 (Ref Range: 45-73 %) Imm Gran Pct Auto 0.1 (Ref Range: 0.0-0.4 %) 0.3 (Ref Range: 0.0-0.4 %) 0.2 (Ref Range: 0.0-0.4 %) Lymphocytes Percent Auto 26.5 (Ref Range: 20-40 %) 32.4 (Ref Range: 20-40 %) 21.5 (Ref Range: 20-40 %) Monocytes Percent Auto 6.5 (Ref Range: 2-11 %) 5.1 (Ref Range: 2-11 %) 5.3 (Ref Range: 2-11 %) Eosinophils Percent Auto 1.2 (Ref Range: 0-4 %) 0.9 (Ref Range: 0-4 %) 1.3 (Ref Range: 0-4 %) Basophils Percent Auto 0.4 (Ref Range: 0-2 %) 1.0 (Ref Range: 0-2 %) 0.8 (Ref Range: 0-2 %) NRBC Pct Auto 0.0 (Ref Range: 0.0-0.2 /100WBC) 0.0 (Ref Range: 0.0-0.2 /100WBC) 0.0 (Ref Range: 0.0-0.2 /100WBC) Neutrophils Absolute Auto 4.5 (Ref Range: 2.0-8.3 x10*3/uL) 3.5 (Ref Range: 2.0-8.3 x10*3/uL) 4.5 (Ref Range: 2.0-8.3 x10*3/uL) Imm Gran Abs Auto 0.01 (Ref Range: 0.00-0.03 X10*3/uL) 0.02 (Ref Range: 0.00-0.03 X10*3/uL) 0.01 (Ref Range: 0.00-0.03 X10*3/uL) Lymphocytes Absolute Auto 1.8 (Ref Range: 1.2-4.9 X10*3/uL) 1.9 (Ref Range: 1.2-4.9 X10*3/uL) 1.4 (Ref Range: 1.2-4.9 X10*3/uL) Monocytes Absolute Auto 0.5 (Ref Range: 0.1-1.2 X10*3/uL) 0.3 (Ref Range: 0.1-1.2 X10*3/uL) 0.3 (Ref Range: 0.1-1.2 X10*3/uL) Eosinophils Absolute Auto 0.1 (Ref Range: 0.0-0.4 X10*3/uL) 0.1 (Ref Range: 0.0-0.4 X10*3/uL) 0.1 (Ref Range: 0.0-0.4 X10*3/uL) Basophils Absolute Auto 0.0 (Ref Range: 0.0-0.2 X10*3/uL) 0.1 (Ref Range: 0.0-0.2 X10*3/uL) 0.1 (Ref Range: 0.0-0.2 X10*3/uL) NRBC Abs Auto 0.000 (Ref Range: 0.0-0.012 X10*3/uL) 0.000 (Ref Range: 0.0-0.012 X10*3/uL) 0.000 (Ref Range: 0.0-0.012 X10*3/uL) ???Lab:Urinalysis and Microscopic (Order Date - 05/13/2024) (Collection Date & Time - 05/13/2024 06:35 AM)?ValueReference Range?Color UrineYellow -?RBC Urine0-20-2 - /HPF?Appearance UrineCloudy-?PH6.05.0- 9.0 -?Glucose Urine UANegativeNegative - mg/dL?Urine BloodTrace Negative -?Specific [place] - Urine1.0101.005-1.025 -?Urine ProteinNegativeNeg-Trace - mg/dL?Urine KetonesNegativeNegative - mg/dL ?Nitrite UrinePositiveANegative -?Leukocyte Esterase UrineLarge (3+)ANegative -?WBC Urine>50A0-5 - /HPF?Squamous Epithelial Cell Urine3-50-2 - /HPF?Bacteria Urine4+None Seen -?Hyaline Casts Urine 0-20-2 - /LPF * Lab:Brielle fernández Fast * Collection Date 05/13/2024 01/15/2024 09/06/2023 Collection Time 06:36 AM 06:35 AM 07:45 AM Order Date 05/13/2024 01/15/2024 09/06/2023 Sodium 143 (Ref Range: 135-145 mmol/L) 144 (Ref Range: 135-145 mmol/L) 143 (Ref Range: 135-145 mmol/L) Bilirubin Total 0.3 (Ref Range: 0.0-1.0 mg/dL) 0.4 (Ref Range: 0.0-1.0 mg/dL) 0.3 (Ref Range: 0.0-1.0 mg/dL) Aspartate Amino Transferase 13 (Ref Range: 5-31 U/L) 14 (Ref Range: 5-31 U/L) 15 (Ref Range: 5-31 U/L) Alanine Aminotransferase 11 (Ref Range: 0-31 U/L) 9 (Ref Range: 0-31 U/L) 12 (Ref Range: 0-31 U/L) Total Protein 7.0 (Ref Range: 6.5-8.0 g/dL) 6.8 (Ref Range: 6.5-8.0 g/dL) 7.1 (Ref Range: 6.5-8.0 g/dL) Albumin Level 4.0 (Ref Range: 3.5-5.0 g/dL) 4.0 (Ref Range: 3.5-5.0 g/dL) 4.1 (Ref Range: 3.5-5.0 g/dL) Alkaline Phosphatase 38 L (Ref Range: 39-117 U/L) 43 (Ref Range: 39-117 U/L) 43 (Ref Range: 39-117 U/L) Potassium 4.5 (Ref Range: 3.3-5.1 mmol/L) 4.8 (Ref Range: 3.3-5.1 mmol/L) 4.7 (Ref Range: 3.3-5.1 mmol/L) Chloride 106 (Ref Range: 96-108 mmol/L) 107 (Ref Range: 96-108 mmol/L) 106 (Ref Range: 96-108 mmol/L) Carbon Dioxide 29 (Ref Range: 22-29 mmol/L) 29 (Ref Range: 22-29 mmol/L) 31 H (Ref Range: 22-29 mmol/L) Anion Gap 13 (Ref Range: 12-20) 13 (Ref Range: 12-20) 11 L (Ref Range: 12-20) Blood Urea Nitrogen 13 (Ref Range: 9-16 mg/dL) 16 (Ref Range: 9-16 mg/dL) 14 (Ref Range: 9-16 mg/dL) Creatinine 0.87 (Ref Range: 0.5-1.4 mg/dL) 0.86 (Ref Range: 0.5-1.4 mg/dL) 0.89 (Ref Range: 0.5-1.4 mg/dL) Estimated Glomerular Filt Rate > 60 > 60 > 60 Glucose Fasting 124 H (Ref Range: 60-99 mg/dL) 124 H (Ref Range: 60-99 mg/dL) 128 H (Ref Range: 60-99 mg/dL) Calcium 10.3 H (Ref Range: 8.4-10.2 mg/dL) 9.9 (Ref Range: 8.4-10.2 mg/dL) 10.0 (Ref Range: 8.4-10.2 mg/dL) * Lab:Lipid Panel * Collection Date 05/13/2024 01/15/2024 09/06/2023 Collection Time 06:36 AM 06:35 AM 07:45 AM Order Date 05/13/2024 01/15/2024 09/06/2023 Triglycerides 108 (Ref Range: <150 mg/dL) 112 (Ref Range: <150 mg/dL) 134 (Ref Range: <150 mg/dL) Cholesterol 149 (Ref Range: <200 mg/dL) 149 (Ref Range: <200 mg/dL) 153 (Ref Range: <200 mg/dL) LDL Cholesterol Calculated 74 (Ref Range: <100 mg/dL) 75 (Ref Range: <100 mg/dL) 74 (Ref Range: <100 mg/dL) HDL Cholesterol 54 (Ref Range: >40 mg/dL) 52 (Ref Range: >40 mg/dL) 53 (Ref Range: >40 mg/dL) * Examination: G eneral Examination: GENERAL APPEARANCE: p leasant, well nourished, well developed, in no acute distress, calm and relaxed, elderly woman. HEAD: a traumatic, normocephalic. EYES: e nathen, perrla, anicteric, conjugate. EARS: n ormal. NOSE: s eptum intact. ORAL CAVITY: n ormal, unremarkable. NECK/THYROID: n o jugular venous distention, no carotid bruit, thyroid normal. LYMPH NODES: n o enlarged lymph nodes,spleen normal. SKIN: n o suspicious lesions, anicteric. HEART: n o clicks, gallops, murmurs, or rubs, regular rhythm, S1, S2 normal, no s3, or vascular bruits. LUNGS: c lear to auscultation . BREASTS: n ot examined. ABDOMEN: b owel sounds normal, no ascites, no organomegaly, no mass. RECTAL EXAM: n ot examined. MUSCULOSKELETAL: e xtremities unremarkable, no clubbing, cyanosis or edema. PERIPHERAL PULSES: n ormal. NEUROLOGIC: a lert and oriented, cranial nerves 2-12 grossly intact, deep tendon reflexes 2+ symmetrical, motor strength normal upper and lower extremities, sensory exam intact. PSYCH: a lert, oriented. Assessment: * Assessment: 1. T ype 2 diabetes mellitus with complication, without long-term current use of insulin - E11.8 (Primary) N otes :Her hemoglobin A1c is 6.6. Dictations. Her weight is in the normal range. No change in her medication was necessary. 2 . H yperlipidemia, unspecified hyperlipidemia type - E78.5 N otes :The current fasting lipid profile shows good control of her lipids and no change in her regimen was made. She was encouraged to lose weight and consume a healthy diet and exercise regularly. 3 . B 12 deficiency - E53.8 N otes :Her mean cell volume is in the normal she was continuing current therapy without change. 4 . A nemia, unspecified type - D64.9 N otes :She has a mild normochromic normocytic anemia and does not appear to be deficient in B12 or iron. Plan: * Treatment: 2. H yperlipidemia, unspecified hyperlipidemia type Continue Atenolol Tablet, 25 MG, 1 tablet, Orally, Once a day; C ontinue Lisinopril Tablet, 2.5 MG, 1 tablet, Orally, Once a day; C ontinue glipiZIDE Tablet, 5 MG, 1 tablet 30 minutes before breakfast, Orally, Once a day; C ontinue metFORMIN HCl Tablet, 500 MG, 2 Tablets, Orally, Twice a day; C ontinue Omeprazole Capsule Delayed Release, 10 MG, 1 capsule 30 minutes before morning meal, Orally, Once a day; C ontinue Simvastatin Tablet, 40 MG, 1 tablet in the evening, Orally, Once a day; C ontinue Iron (Ferrous Sulfate) Tablet, 325 (65 Fe) MG, 1 tablet, Orally, Once every two days. L AB: PROFILE, FASTING (COMPREHENSIVE METABOLIC) L AB: CBC WITH AUTO DIFF L AB: Ferritin L AB: Lipid Panel L AB: Vitamin B12 L AB: Hemoglobin A1c 3. B 12 deficiency L AB: PROFILE, FASTING (COMPREHENSIVE METABOLIC) L AB: CBC WITH AUTO DIFF L AB: Ferritin L AB: Lipid Panel L AB: Vitamin B12 L AB: Hemoglobin A1c 4. A nemia, unspecified type L AB: PROFILE, FASTING (COMPREHENSIVE METABOLIC) L AB: CBC WITH AUTO DIFF L AB: Ferritin L AB: Lipid Panel L AB: Vitamin B12 L AB: Hemoglobin A1c * Procedure Codes: * Preventive Medicine: DM Care Plan: P atient Lifestyle Goals P atient wants to be able to manage diabetes without too much effort. T reatment Goals B lood Sugars less than < 115, HbA1C < 7.0. B arriers n o barriers. S elf-Managment Goals I ncrease exercise to 3 times a week for 30 mins. * Follow Up: A s Scheduled (Reason: OV) * Images: * Sign off status: Completed true * Provider: Adonis Lee MD Date: 0 05/15/2024 Generated for Mahendra turner/Raheem/eTransmitting on: 1 10/15/2024 07:18 AM EST History and Physical Notes * HPI (History of Present Illness) Category Sub-Category Detail Notes COVID-19 Screening Questions Have you had any new onset fever, chills, cough, congestion, sore throat, shortness of breath, muscle aches?: No Have you been exposed to the virus within the last 10 days?: Yes Exposed on Friday 05/11 Tested Sunday 05/13 was Negative. Feels she has a slight cold runny nose. Have you travelled internati onally in the last 10 days?: No Have you been exposed to COV ID-19 in the past?: No Examination Category Sub-Category Detail Notes General Examination GENERAL APPEARANCE: pleasant , well nourished, well developed, in no acute distress, calm and relaxed, elderly woman HEAD: atraumatic, normocep halic EYES: eomi, perrla, anicte george, conjugate EARS: normal NOSE: septum intact NECK/THYROID: no jugular venous di stention, no carotid bruit, thyroid normal HEART: no clicks, gallops, murmurs, or rubs, regular rhythm, S1, S2 normal, no s3, or vascular bruits LUNGS: clear to auscultatio n ABDOMEN: bowel sounds normal, no ascites, no organomegaly, no mass NEUROLOGIC: alert and oriented, cranial nerves 2-12 grossly intact, deep tendon reflexes 2+ symmetrical, motor strength normal upper and lower extremities, sensory exam intact SKIN: no suspicious lesion s, anicteric PERIPHERAL PULSES: normal BREASTS: not examined MUSCULOSKELETAL: extremities unremark able, no clubbing, cyanosis or edema LYMPH NODES: no enlarged lymph no roopa,spleen normal RECTAL EXAM: not examined PSYCH: alert, oriented ORAL CAVITY: normal, unremarkable
--- OUTSIDE RECORDS SUMMARY | 2024-06-14 13:39 | XMS_ITS ---
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 See Lee III Primary Care Provider REASON FOR VISIT New Refill Request Medications Medication SIG (Take, Route, Fr equency, Duration) Notes Start Date End Date Status Omeprazole 10 MG 1 capsule 30 minutes before morning meal Orally Once a day for 30 days Active Social History Sex Assigned At : Social History Observation Description Sex Assigned At Female Encounters Encounter Location Date Provider Diagnosis See Lee III, MD [address] [place] [address] [place] [address] 06/14/2024 See Lee Hyperlipidemia, unspecified hyperlipidemia type E78.5 Assessments Encounter Date Diagnosis (ICD Code) Assessment Notes Treat ment Notes Treatment Clinical Notes 06/14/2024 Hyperlipidemia, unspecified hyperlipidemia type (ICD-10 - E78.5) The current fasting lipid profile shows good control of her lipids and no change in her regimen was made. She was encouraged to lose weight and consume a healthy diet and exercise regularly. Plan Of Treatment Medication Medication Name Sig Start Date Stop Date Notes Omeprazole 10 MG 1 capsule 30 minutes before morning meal Orally Once a day for 30 days Next Appt Details Provider Name:See Lee , 08/17/2025 10:00:00 AM, [address] [place] [address] [place], [address], Provider Name:See Lee , 02/14/2026 10:00:00 AM, [address] [place] [address] [address], [place], [phone], Progress Notes * Rachael MORA ADOB: 2 (84 yo F)Acc No.[id number]:06/14/2024 Patient: Rachael GRAY :1940 A ge:84 Y S ex:Female Address: [facility] [address], [place] * Refills Refill Omeprazole Capsule Delayed Release, 10 MG, Orally, 30, 1 capsule 30 minutes before morning meal, Once a day, 30 days, Refills=11 * true * Date: Generated for Mahendra turner/Raheem/Bhanuitting on: 10/15/2024 07:17 AM EST
--- OUTSIDE RECORDS SUMMARY | 2024-08-23 13:57 | XMS_ITS ---
Author Organization See Lee III, MD Address [address] [place] [address] [place] [address] Care Team Providers Care Rubbish Collection Supervisor Name Role Phone Dr. See Lee III Primary Care Provider REASON FOR VISIT New Refill Request Medications Medication SIG (Take, Route, Fr equency, Duration) Notes Start Date End Date Status Simvastatin 40 MG 1 tablet in the even ing Orally Once a day for 90 days Active Social History Sex Assigned At : Social History Observation Description Sex Assigned At Female Encounters Encounter Location Date Provider Diagnosis See Lee III, MD [address] [place] [address] [place] [address] 08/23/2024 See Lee Hyperlipidemia, unspecified hyperlipidemia type E78.5 Assessments Encounter Date Diagnosis (ICD Code) Assessment Notes Treat ment Notes Treatment Clinical Notes 08/23/2024 Hyperlipidemia, unspecified hyperlipidemia type (ICD-10 - E78.5) The current fasting lipid profile shows good control of her lipids and no change in her regimen was made. She was encouraged to lose weight and consume a healthy diet and exercise regularly. Plan Of Treatment Medication Medication Name Sig Start Date Stop Date Notes Simvastatin 40 MG 1 tablet in the even ing Orally Once a day for 90 days Next Appt Details Provider Name:See Lee , 08/17/2025 10:00:00 AM, [address] [place] [address] [place], [address], Provider Name:See Lee , 02/14/2026 10:00:00 AM, [address] [place] [address] [address], [place], [address], Progress Notes * Rachael MORA ADOB: 2 (84 yo F)Acc No.[id number]:08/23/2024 Patient: Raphael AZAMRubina Donnellymeena Alexander :1940 A ge:84 Y S ex:Female Address: [address], [place] [address] * Refills Refill Simvastatin Tablet, 40 MG, Orally, 90, 1 tablet in the evening, Once a day, 90 days, Refills=3 * true * Date: Generated for Mahendra turner/Raheem/Bhanuitting on: 10/15/2024 07:18 AM EST
--- OUTSIDE RECORDS SUMMARY | 2024-09-15 11:30 | XMS_ITS ---
Author Organization See Lee III, MD Address [address] [place] [address] [place] [address] Care Team Providers Care Reliability Technicians Name Role Phone Dr. See Lee III Primary Care Provider REASON FOR VISIT Annual Exam Social History Sex Assigned At : Social History Observation Description Sex Assigned At Female Encounters Encounter Location Date Provider Diagnosis See Lee III, MD [address] [place] [address] [place] [address] 09/15/2024 See Lee Plan Of Treatment Next Appt Details Provider Name:See Lee , 08/17/2025 10:00:00 AM, [address] [place] [address] [place], [address], Provider Name:See Lee , 02/14/2026 10:00:00 AM, [address] [place] [address] [place], [address], Progress Notes * Rachael MORA ADOB: 2 (85 yo F)Acc No.[id number]:09/15/2024 Progress Notes Patient: Rachael GRAY Provider: Adonis Lee MD :1940 A ge:84 Y S ex:Female Date:09/15/2024 Address:[address], [id number] Subjective: * Chief Complaints: * 1 . Annual Exam. * Medical History: Objective: * Vitals: Assessment: Plan: * Treatment: * Images: * The named appointment provid er may or may not be the originator of this progress note, and it is not deemed complete until electronically signed by the appointment provider. Sign off status: Pending * Provider: Adonis Lee MD Date: 0 09/15/2024 Generated for Mahendra turner/Raheem/eTransmitting on: 10/15/2024 07:18 AM EST
--- OUTSIDE RECORDS SUMMARY | 2025-01-17 13:45 | XMS_ITS ---
Author Organization See Lee III, MD Address [address] [place] [address] [place] [address] Care Team Providers Care Box Printing Machine Operator Name Role Phone Dr. See Lee III Primary Care Provider [phone] REASON FOR VISIT New Refill Request Medications Medication SIG (Take, Route, Fr equency, Duration) Notes Start Date End Date Status Atenolol 25 MG 1 tablet Orally Once a day for 90 days 07/06/2019 Active Social History Sex Assigned At : Social History Observation Description Sex Assigned At Female Encounters Encounter Location Date Provider Diagnosis See Lee III, MD [address] [place] [address] [place] [address] 01/17/2025 See Lee Hyperlipidemia, unspecified hyperlipidemia type E78.5 Assessments Encounter Date Diagnosis (ICD Code) Assessment Notes Treat ment Notes Treatment Clinical Notes 01/17/2025 Hyperlipidemia, unspecified hyperlipidemia type (ICD-10 - E78.5) The current fasting lipid profile shows good control of her lipids and no change in her regimen was made. She was encouraged to lose weight and consume a healthy diet and exercise regularly. Plan Of Treatment Medication Medication Name Sig Start Date Stop Date Notes Atenolol 25 MG 1 tablet Orally Once a day for 90 days 06/19 Next Appt Details Provider Name:See Lee , 08/17/2025 10:00:00 AM, [address] [place] [address] [place], [address], Provider Name:See Lee , 02/14/2026 10:00:00 AM, [address] [place] [address] [address], [place], [address], Progress Notes * Rachael MORA ADOB: 2 (84 yo F)Acc No.[id number]:01/17/2025 Patient: Rachael GRAY :1940 A ge:84 Y S ex:Female Address:[address] [place] [address], [place] * Refills Refill Atenolol Tablet, 25 MG, Orally, 90, 1 tablet, Once a day, 90 days, Refills=3 * true * Date: Generated for Mahendra turner/Raheem/Bhanuitting on: 10/15/2024 07:17 AM EST
--- OUTSIDE RECORDS SUMMARY | 2025-02-11 04:45 | XMS_ITS ---
Author Organization See Lee III, MD Address [address] [place] [address] DR CAMPBELL Janett [place] [address] Care Team Providers Care Pin Chaser Name Role Phone Dr. See Lee III Primary Care Provider [phone] Allergies Allergen (clinical drug ingredient) Drug/Non Drug Allergy documented on EMR Reaction Allergy Type Onset Date Status No Known Food Allergy Unknown Drug Allergy Active Seasonal IC Unknown Drug Allergy Activ e fentanyl Fentanyl Unknown Drug Allergy Active Results Component Value Reference Range Notes URINE DIP STICK Reviewed date:02/11/2025 10:23:07 AM Interpretation: Performing Lab: Notes/Report: SG 1.005 1.005 - 1.025 pH 7.5 5.0 - 9.0 DONNA 125 Negative - NIT Negative Negative - PRO 15 Negative - Trace GLU Negative Negative - KET Negative Negative - UBG 0.2 0.1 - 1.8 PEYTON Negative 0.2 - 1.3 BLD 5-10 Negative - Menstrating No REASON FOR VISIT Annual Exam Medications Medication SIG (Take, Route, Frequency, Duration) Notes Start Date End Date Status Iron (Ferrous Sulfate) 325 (65 Fe) MG 1 tablet Orally Once every two days Active metFORMIN HCl 500 MG 2 Tablets Orally Tw ice a day Active Lisinopril 2.5 MG 1 tablet Orally Once a day 09/23/2019 Active glipiZIDE 5 MG 1 tablet 30 minutes before breakfast Orally Once a day 10/23/2019 Active Omeprazole 10 MG 1 capsule 30 minutes before morning meal Orally Once a day Active Simvastatin 40 MG 1 tablet in the even ing Orally Once a day Active Atenolol 25 MG 1 tablet Orally Once a day 07/06/2019 Active Social History Tobacco Use: Social History Observation Description Date Details (start date - stop date) Never Smoker NA - NA Sex Assigned At : Social History Observation Description Sex Assigned At Female Tobacco Control (Standard) Question Answer Notes Tobacco use: Nonsmoker Additional Findings: Tobacco non-user Aggressive nonsmoker AUDIT-C (Standard) Question Answer Notes Did you have a drink contain ing alcohol in the past year? Yes How often did you have six o r more drinks on one occasion in the past year? 4 or more times a week (4 points) How many drinks did you have on a typical day when you were drinking in the past year? 1 or 2 drinks (0 point) How often did you have a dri nk containing alcohol in the past year? Never (0 point) Points 4 Interpretation Positive Vital Signs Temperature 98.4 degrees Fahrenheit 02/12/20 25 Blood pressure systolic 134 mm Hg 02/12/20 25 Blood pressure diastolic 56 mm Hg 025 Heart Rate 54 /min 02/11/2025 Respiratory Rate 16 /min 02/11/2025 Height 64 in 02/11/2025 Weight 140 lbs 02/11/2025 BMI 24.03 kg/m2 02/11/2025 Oximetry 98 % 02/11/2025 Encounters Encounter Location Date Provider Diagnosis See Lee III, MD [address] [place] [address] [place] [address] 02/11/2025 See Lee Hyperlipidemia, unspecified hyperlipidemia type E78.5 ; Type 2 diabetes mellitus with complication, without long-term current use of insulin E11.8 ; B12 deficiency E53.8 ; Anemia, unspecified type D64.9 and History of uterine prolapse Z87.42 Assessments Encounter Date Diagnosis (ICD Code) Assessment Notes Treat ment Notes Treatment Clinical Notes 02/11/2025 Hyperlipidemia, unspecified hyperlipidemia type (ICD-10 - E78.5) The current fasting lipid profile shows good control of her lipids and no change in her regimen was made. She was encouraged to lose weight and consume a healthy diet and exercise regularly. 02/11/2025 Type 2 diabetes mellitus with complication, without long-term current use of insulin (ICD-10 - E11.8) The hemoglobin A1c has increased to 7.1. We discussed her weight diet and medications at length. 02/11/2025 B12 deficiency (ICD-10 - E53.8) The B12 level is in the normal range in current therapy was continued. 02/11/2025 Anemia, unspecified type (ICD-10 - D64.9) Her hematocrit is 36.8 with a normal mean cell volume. She has had no sign of bleeding. Current therapy was continued without change. 02/11/2025 History of uterine prolapse (ICD-10 - Z87.42) She is using the pessary and is quite satisfied with the results. She is under the care of a automotive service writer. Plan Of Treatment Medication Medication Name Sig Start Date Stop Date Notes Iron (Ferrous Sulfate) 325 ( 65 Fe) MG 1 tablet Orally Once every two days metFORMIN HCl 500 MG 2 Tablets Orally Twice a day Lisinopril 2.5 MG 1 tablet Orally Once a day 09/23/2019 glipiZIDE 5 MG 1 tablet 30 minutes before breakfast Orally Once a day 10/23/2019 Omeprazole 10 MG 1 capsule 30 minutes before morning meal Orally Once a day Simvastatin 40 MG 1 tablet in the even ing Orally Once a day Atenolol 25 MG 1 tablet Orally Once a day 07/06/2019 Pending Test Test Name Order Date PROFILE, FASTING (COMPREHENSIVE METABOLI C) 02/11/2025 CBC w DIFF 02/11/2025 Ferritin 02/11/2025 Lipid Panel 02/11/2025 Vitamin B12 02/11/2025 Microalbumin, Random 02/11/2025 Hemoglobin A1c 02/11/2025 Next Appt Details Follow Up: 6 Months, Reason: OV Provider Name:See Lee , 08/17/2025 10:00:00 AM, [address] [facility] [address], [place], [address], Provider Name:See Lee , 02/14/2026 10:00:00 AM, [address] [facility] [place], [address], Progress Notes * Rachael MORA ADOB: 2 (84 yo F)Acc No.[id number]:02/11/2025 Progress Notes Patient: Raphael Rachael SANCHES Provider: Adonis Lee MD :1940 A ge:84 Y S ex:Female Date:02/11/2025 Address:[address], [id number] Subjective: * Chief Complaints: * A nnual Exam * HPI: D epression Screening: She returns to the office at the age of 84 for her annual physical examination. Her main complaint is that she has begun to experience tingling and numbness in her feet it is equal on both sides and constant. She is able to feel her feet and has had no ulcerations are injuries but it is worrisome to her.She says her urinary incontinence is growing worse. She has leg cramps at night and in the morning. This happens about once or twice a month. She says she is experiencing some memory loss that she gets older. On examination today her feet appeared to be normal and were atraumatic. Her reflexes were intact. She had sensation. It was somewhat diminished. Her memory was appropriate for her age. PHQ-9 L ittle interest or pleasure in doing things?Not at all F eeling down, depressed, or hopeless S everal days T rouble falling or staying asleep, or sleeping too much N ot at all F eeling tired or having little energy N ot at all P oor appetite or overeating N ot at all F eeling bad about yourself or that you are a failure, or have let yourself or your family down N ot at all T rouble concentrating on things, such as reading the newspaper or watching television S ever M oving or speaking so slowly that other people could have noticed; or the opposite, being so fidgety or restless that you have been moving around a lot more than usual N ot at all T houghts that you would be better off or of hurting yourself in some way N ot at all T otal Score 2 I nterpretation M inimal Depression C OVID-19 Screenin)neuropathy numb no pain 2) callusses on big ote, numb and tingle, more on the left, only feet 4) hearing loss she and ashley share a pair, does not want audiology because wont buy aids,. Questions H ave you had any new onset fever, chills, cough, congestion, sore throat, shortness of breath, muscle aches? N o F all Risk Screening: Fall History H ave you had any falls with injury in the past year? N o H ave you had two or more falls in the past year? Y es F all Risk Assessment: T wo or more falls without injury in the past year S MAICO Questions: SDOH Questions I n the past year have you been worried about losing your housing? N o I n the past year have you or any family members you live with been unable to get any of the following when it was really needed? Check all that apply: N one * ROS: G eneral/Constitutional: pain T ingling and numbness in the feet. C hills d enies. F atigue a dmits. F ever d enies. E NT: Decreased hearing d enies. R espiratory: Cough d enies. C ardiovascular: Chest pain with exertion d enies. D yspnea on exertion?denies. S hortness of breath d enies. G astrointestinal: Constipation o ccasional. D ecreased appetite d enies. D iarrhea d enies. H eartburn d enies. N ausea d enies. R ectal bleeding d enies. V omiting d enies. H ematology: bruising d enies. p etechiae d enies. S wollen glands n one have been noted. G enitourinary: Frequent urination d enies. M usculoskeletal: Muscle aches d enies. P ainful joints d enies. S ciatica d enies. W eakness d enies. S kin: Itching d enies. R lakesha d enies. S kin lesion(s)?denies. N eurologic: Difficulty speaking d enies. D izziness d enies.?Headache d enies. L ow back pain d enies. P sychiatric: Depressed mood d enies. * Medical History: * Surgical History: c holecystectomy [id number], all vaginal deliveries repair of bladder. After [...] Social History: T obacco Use: T obacco Control (Standard) T obacco use: N onsmoker A dditional Findings: Tobacco non-user A ggressive nonsmoker D rugs/Alcohol: D rugs H ave you used drugs other than those for medical reasons in the past 12 months? N o D rug/Alcohol: A YENY-C (Standard) D id you have a drink containing alcohol in the past year? Y es H ow often did you have six or more drinks on one occasion in the past year? 4 or more times a week (4 points) H ow many drinks did you have on a typical day when you were drinking in the past year? 1 or 2 drinks (0 point) H ow often did you have a drink containing alcohol in the past year? N ever (0 point) P oints 4 I nterpretation P ositive S he has been to Nikita, [place], for 53 years. 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 He is retired. 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 They have 2 surviving children, sons. * Medications: T akingLisinopril 2.5 MG Tablet 1 tablet Orally Once a day glipiZIDE 5 MG Tablet 1 tablet 30 minutes before breakfast Orally Once a day metFORMIN HCl 500 MG Tablet 2 Tablets Orally Twice a day Iron (Ferrous Sulfate) 325 (65 Fe) MG Tablet 1 tablet Orally Once every two days Omeprazole 10 MG Capsule Delayed Release 1 capsule 30 minutes before morning meal Orally Once a day Simvastatin 40 MG Tablet 1 tablet in the evening Orally Once a day Atenolol 25 MG Tablet 1 tablet Orally Once a day Medication List reviewed and reconciled with the patientTaking Lisinopril 2.5 MG Tablet 1 tablet Orally Once a day Taking glipiZIDE 5 MG Tablet 1 tablet 30 minutes before breakfast Orally Once a day Taking metFORMIN HCl 500 MG Tablet 2 Tablets Orally Twice a day Taking Iron (Ferrous Sulfate) 325 (65 Fe) MG Tablet 1 tablet Orally Once every two days Taking Omeprazole 10 MG Capsule Delayed Release 1 capsule 30 minutes before morning meal Orally Once a day Taking Simvastatin 40 MG Tablet 1 tablet in the evening Orally Once a day Taking Atenolol 25 MG Tablet 1 tablet Orally Once a day Medication List reviewed and reconciled with the patient * Allergies: F entanylSeasonal ICNo Known Food Allergyno[Allergies Verified] Objective: * Vitals: H t: 64, Wt:140, BMI:24.03, BP:134/56, HR:54, RR:16, Temp:98.4, Oxygen sat %:98, Wt-k.5. * P ast Orders: Lab:Lipid Panel * Collection Date 02/08/2025 05/13/2024 01/15/2024 Collection Time 06:32 AM 06:36 AM 06:35 AM Order Date 02/08/2025 05/13/2024 01/15/2024 Triglycerides 156 H (Ref Range: <150 mg/dL) 108 (Ref Range: <150 mg/dL) 112 (Ref Range: <150 mg/dL) Cholesterol 169 (Ref Range: <200 mg/dL) 149 (Ref Range: <200 mg/dL) 149 (Ref Range: <200 mg/dL) LDL Cholesterol Calculated 86 (Ref Range: <100 mg/dL) 74 (Ref Range: <100 mg/dL) 75 (Ref Range: <100 mg/dL) HDL Cholesterol 52 (Ref Range: >40 mg/dL) 54 (Ref Range: >40 mg/dL) 52 (Ref Range: >40 mg/dL) * Lab:Vitamin B12 * Collection Date 02/08/2025 01/15/2024 09/06/2023 Collection Time 06:32 AM 06:35 AM 07:45 AM Order Date 02/08/2025 01/15/2024 09/06/2023 Vitamin B12 464 (Ref Range: 200-900 pg/mL) 656 (Ref Range: 200-900 pg/mL) 992 H (Ref Range: 200-900 pg/mL) * Lab:Hemoglobin A1c * Collection Date 02/08/2025 05/13/2024 01/15/2024 Collection Time 06:32 AM 06:36 AM 06:35 AM Order Date 02/08/2025 05/13/2024 01/15/2024 Hemoglobin A1c % 7.1 H (Ref Range: <6.0 %) 6.6 H (Ref Range: <6.0 %) 6.9 H (Ref Range: <6.0 %) Estimated Average Glucose 157 (Ref Range: mg/dL) 143 (Ref Range: mg/dL) 151 (Ref Range: mg/dL) * Lab:Complete Blood Count Aut o Diff * Collection Date 02/08/2025 05/13/2024 01/15/2024 Collection Time 06:32 AM 06:36 AM 06:35 AM Order Date 02/08/2025 05/13/2024 01/15/2024 White Blood Count 6.6 (Ref Range: 4.8-10.8 X10*3/uL) 6.9 (Ref Range: 4.8-10.8 X10*3/uL) 5.9 (Ref Range: 4.8-10.8 X10*3/uL) Red Blood Count 3.86 L (Ref Range: 4.20-5.50 X10*6/uL) 4.03 L (Ref Range: 4.20-5.50 X10*6/uL) 3.96 L (Ref Range: 4.20-5.50 X10*6/uL) Hemoglobin 11.9 L (Ref Range: 12.0-16.0 g/dl) 12.0 (Ref Range: 12.0-16.0 g/dl) 12.0 (Ref Range: 12.0-16.0 g/dl) Hematocrit 36.8 L (Ref Range: 37.0-47.0 %) 38.1 (Ref Range: 37.0-47.0 %) 37.2 (Ref Range: 37.0-47.0 %) Mean Corpuscular Volume 95.3 (Ref Range: 80.0-98.0 fL) 94.5 (Ref Range: 80.0-98.0 fL) 93.9 (Ref Range: 80.0-98.0 fL) Mean Corpuscular Hemoglobin 30.8 (Ref Range: 27.0-33.0 pg) 29.8 (Ref Range: 27.0-33.0 pg) 30.3 (Ref Range: 27.0-33.0 pg) Mean Corpuscular HGB Conc 32.3 (Ref Range: 31.0-35.0 g/dl) 31.5 (Ref Range: 31.0-35.0 g/dl) 32.3 (Ref Range: 31.0-35.0 g/dl) Red Cell Distribution Width 12.9 (Ref Range: 11.0-16.0 %) 13.3 (Ref Range: 11.0-16.0 %) 13.6 (Ref Range: 11.0-16.0 %) Platelet Count 321 (Ref Range: 160-400 X10*3/uL) 289 (Ref Range: 160-400 X10*3/uL) 300 (Ref Range: 160-400 X10*3/uL) Mean Platelet Volume 11.4 (Ref Range: 9.4-12.3 fL) 11.1 (Ref Range: 9.4-12.3 fL) 11.6 (Ref Range: 9.4-12.3 fL) Neutrophils Percent Auto 67.3 (Ref Range: 45-73 %) 65.3 (Ref Range: 45-73 %) 60.3 (Ref Range: 45-73 %) Imm Gran Pct Auto 0.3 (Ref Range: 0.0-0.4 %) 0.1 (Ref Range: 0.0-0.4 %) 0.3 (Ref Range: 0.0-0.4 %) Lymphocytes Percent Auto 25.6 (Ref Range: 20-40 %) 26.5 (Ref Range: 20-40 %) 32.4 (Ref Range: 20-40 %) Monocytes Percent Auto 5.1 (Ref Range: 2-11 %) 6.5 (Ref Range: 2-11 %) 5.1 (Ref Range: 2-11 %) Eosinophils Percent Auto 1.1 (Ref Range: 0-4 %) 1.2 (Ref Range: 0-4 %) 0.9 (Ref Range: 0-4 %) Basophils Percent Auto 0.6 (Ref Range: 0-2 %) 0.4 (Ref Range: 0-2 %) 1.0 (Ref Range: 0-2 %) NRBC Pct Auto 0.0 (Ref Range: 0.0-0.2 /100WBC) 0.0 (Ref Range: 0.0-0.2 /100WBC) 0.0 (Ref Range: 0.0-0.2 /100WBC) Neutrophils Absolute Auto 4.5 (Ref Range: 2.0-8.3 x10*3/uL) 4.5 (Ref Range: 2.0-8.3 x10*3/uL) 3.5 (Ref Range: 2.0-8.3 x10*3/uL) Imm Gran Abs Auto 0.02 (Ref Range: 0.00-0.03 X10*3/uL) 0.01 (Ref Range: 0.00-0.03 X10*3/uL) 0.02 (Ref Range: 0.00-0.03 X10*3/uL) Lymphocytes Absolute Auto 1.7 (Ref Range: 1.2-4.9 X10*3/uL) 1.8 (Ref Range: 1.2-4.9 X10*3/uL) 1.9 (Ref Range: 1.2-4.9 X10*3/uL) Monocytes Absolute Auto 0.3 (Ref Range: 0.1-1.2 X10*3/uL) 0.5 (Ref Range: 0.1-1.2 X10*3/uL) 0.3 (Ref Range: 0.1-1.2 X10*3/uL) Eosinophils Absolute Auto 0.1 (Ref Range: 0.0-0.4 X10*3/uL) 0.1 (Ref Range: 0.0-0.4 X10*3/uL) 0.1 (Ref Range: 0.0-0.4 X10*3/uL) Basophils Absolute Auto 0.0 (Ref Range: 0.0-0.2 X10*3/uL) 0.0 (Ref Range: 0.0-0.2 X10*3/uL) 0.1 (Ref Range: 0.0-0.2 X10*3/uL) NRBC Abs Auto 0.000 (Ref Range: 0.0-0.012 X10*3/uL) 0.000 (Ref Range: 0.0-0.012 X10*3/uL) 0.000 (Ref Range: 0.0-0.012 X10*3/uL) * Lab:Brielle Reyes [place] l Fast * Collection Date 02/08/2025 05/13/2024 01/15/2024 Collection Time 06:32 AM 06:36 AM 06:35 AM Order Date 02/08/2025 05/13/2024 01/15/2024 Sodium 143 (Ref Range: 135-145 mmol/L) 143 (Ref Range: 135-145 mmol/L) 144 (Ref Range: 135-145 mmol/L) Bilirubin Total 0.5 (Ref Range: 0.0-1.0 mg/dL) 0.3 (Ref Range: 0.0-1.0 mg/dL) 0.4 (Ref Range: 0.0-1.0 mg/dL) Aspartate Amino Transferase 20 (Ref Range: 5-31 U/L) 13 (Ref Range: 5-31 U/L) 14 (Ref Range: 5-31 U/L) Alanine Aminotransferase 13 (Ref Range: 0-31 U/L) 11 (Ref Range: 0-31 U/L) 9 (Ref Range: 0-31 U/L) Total Protein 6.7 (Ref Range: 6.5-8.0 g/dL) 7.0 (Ref Range: 6.5-8.0 g/dL) 6.8 (Ref Range: 6.5-8.0 g/dL) Albumin Level 4.1 (Ref Range: 3.5-5.0 g/dL) 4.0 (Ref Range: 3.5-5.0 g/dL) 4.0 (Ref Range: 3.5-5.0 g/dL) Alkaline Phosphatase 40 (Ref Range: 39-117 U/L) 38 L (Ref Range: 39-117 U/L) 43 (Ref Range: 39-117 U/L) Potassium 4.6 (Ref Range: 3.3-5.1 mmol/L) 4.5 (Ref Range: 3.3-5.1 mmol/L) 4.8 (Ref Range: 3.3-5.1 mmol/L) Chloride 106 (Ref Range: 96-108 mmol/L) 106 (Ref Range: 96-108 mmol/L) 107 (Ref Range: 96-108 mmol/L) Carbon Dioxide 31 H (Ref Range: 22-29 mmol/L) 29 (Ref Range: 22-29 mmol/L) 29 (Ref Range: 22-29 mmol/L) Anion Gap 11 L (Ref Range: 12-20) 13 (Ref Range: 12-20) 13 (Ref Range: 12-20) Blood Urea Nitrogen 13 (Ref Range: 9-16 mg/dL) 13 (Ref Range: 9-16 mg/dL) 16 (Ref Range: 9-16 mg/dL) Creatinine 0.77 (Ref Range: 0.5-1.4 mg/dL) 0.87 (Ref Range: 0.5-1.4 mg/dL) 0.86 (Ref Range: 0.5-1.4 mg/dL) Estimated Glomerular Filt Rate > 60 > 60 > 60 Glucose Fasting 135 H (Ref Range: 60-99 mg/dL) 124 H (Ref Range: 60-99 mg/dL) 124 H (Ref Range: 60-99 mg/dL) Calcium 10.1 (Ref Range: 8.4-10.2 mg/dL) 10.3 H (Ref Range: 8.4-10.2 mg/dL) 9.9 (Ref Range: 8.4-10.2 mg/dL) * Lab:Ferritin * Collection Date 02/08/2025 01/15/2024 09/06/2023 Collection Time 06:32 AM 06:35 AM 07:45 AM Order Date 02/08/2025 01/15/2024 09/06/2023 Ferritin 25 (Ref Range: 10-250 ng/mL) 16 (Ref Range: 10-250 ng/mL) 10 (Ref Range: 10-250 ng/mL) * Lab:URINE DIP STICK * Collection Date 02/11/2025 09/13/2023 Order Date 02/11/2025 09/13/2023 SG 1.005 (Ref Range: 1.005 - 1.025) 1.010 (Ref Range: 1.005 - 1.025) pH 7.5 (Ref Range: 5.0 - 9.0) NR DONNA 125 (Ref Range: Negative -) 70 (Ref Range: Negative -) NIT Negative (Ref Range: Negative -) Negative (Ref Range: Negative -) PRO 15 (Ref Range: Negative - Trace) 15 (Ref Range: Negative - Trace) GLU Negative (Ref Range: Negative -) Negative (Ref Range: Negative -) KET Negative (Ref Range: Negative -) Negative (Ref Range: Negative -) UBG 0.2 (Ref Range: 0.1 - 1.8) 0.2 (Ref Range: 0.1 - 1.8) PEYTON Negative (Ref Range: 0.2 - 1.3) Negative (Ref Range: 0.2 - 1.3) BLD 5-10 (Ref Range: Negative -) Negative (Ref Range: Negative -) Menstrating No No * Imaging:Diabetic Eye Exam * Performed Date 02/03/2025 01/15/2024 Order Date 02/03/2025 01/15/2024 01/03/2023 Result: undefined undefined undefined * Examination: G eneral Examination: GENERAL APPEARANCE: [...] LUNGS: c lear to auscultation . BREASTS: N ot examined, Examination was declined. ABDOMEN: b owel sounds normal, no ascites, no organomegaly, no mass. RECTAL EXAM: n ot examined. MUSCULOSKELETAL: e xtremities unremarkable, no clubbing, cyanosis or edema. PERIPHERAL PULSES: n ormal. NEUROLOGIC: a lert and oriented, cranial nerves 2-12 grossly intact, deep tendon reflexes 2+ symmetrical, motor strength normal upper and lower extremities, sensory exam intact Upper extremities, diminished lower extremities. PSYCH: a lert, oriented, cooperative with exam, cognitive function intact, good eye contact, speech clear, thought process logical, goal directed. ? Assessment: * Assessment: 1. T ype 2 diabetes mellitus with complication, without long-term current use of insulin - E11.8 (Primary) N otes :The hemoglobin A1c has increased to 7.1. We discussed her weight diet and medications at length. 2 . H yperlipidemia, unspecified hyperlipidemia type - E78.5 N otes :The current fasting lipid profile shows good control of her lipids and no change in her regimen was made. She was encouraged to lose weight and consume a healthy diet and exercise regularly. 3 . B 12 deficiency - E53.8 N otes :The B12 level is in the normal range in current therapy was continued. 4 . A nemia, unspecified type - D64.9 N otes :Her hematocrit is 36.8 with a normal mean cell volume. She has had no sign of bleeding. Current therapy was continued without change. 5 . H istory of uterine prolapse - Z87.42 N otes :She is using the pessary and is quite satisfied with the results. She is under the care of a automotive service writer. Plan: * Treatment: 2. H yperlipidemia, unspecified hyperlipidemia type Continue Atenolol Tablet, 25 MG, 1 tablet, Orally, Once a day; C ontinue Simvastatin Tablet, 40 MG, 1 tablet in the evening, Orally, Once a day; C ontinue Omeprazole Capsule Delayed Release, 10 MG, 1 capsule 30 minutes before morning meal, Orally, Once a day; C ontinue Lisinopril Tablet, 2.5 MG, 1 tablet, Orally, Once a day; C ontinue glipiZIDE Tablet, 5 MG, 1 tablet 30 minutes before breakfast, Orally, Once a day; C ontinue metFORMIN HCl Tablet, 500 MG, 2 Tablets, Orally, Twice a day; C ontinue Iron (Ferrous Sulfate) Tablet, 325 (65 Fe) MG, 1 tablet, Orally, Once every two days. L AB: PROFILE, FASTING (COMPREHENSIVE METABOLIC) L AB: CBC w DIFF L AB: Ferritin L AB: Lipid Panel L AB: Vitamin B12 L AB: Microalbumin, Random L AB: Hemoglobin A1c 3. B 12 deficiency L AB: PROFILE, FASTING (COMPREHENSIVE METABOLIC) L AB: CBC w DIFF L AB: Ferritin L AB: Lipid Panel L AB: Vitamin B12 L AB: Microalbumin, Random L AB: Hemoglobin A1c 4. A nemia, unspecified type L AB: PROFILE, FASTING (COMPREHENSIVE METABOLIC) L AB: CBC w DIFF L AB: Ferritin L AB: Lipid Panel L AB: Vitamin B12 L AB: Microalbumin, Random L AB: Hemoglobin A1c * Labs: * L ab: URINE DIP STICK (Collection Date & Time - 02/11/2025) Value Reference Range S G 1.005 1.005 - 1.025 * p H 7.5 5.0 - 9.0 * L EU 125 Negative - * N IT Negative Negative - * P RO 15 Negative - Trace * G GALEN Negative Negative - * K ET Negative Negative - * U BG 0.2 0.1 - 1.8 * B IL Negative 0.2 - 1.3 * B LD 5-10 Negative - * M enstrating No * Procedure Codes: 8 1002 URINE-NO [id number] MEASURE BLOOD OXYGEN LEVEL * Preventive Medicine: DM Care Plan: P atient Lifestyle Goals P atient wants to be able to manage diabetes without too much effort. T reatment Goals B lood Sugars less than < 115, HbA1C < 7.0. B arriers n o barriers. S elf-Managment Goals I ncrease exercise to 3 times a week for 30 mins, Work on weight loss, with a goal of losing 1 lb per week. E xpected Outcomes m aintaining blood glucose levels within a normal range. * Follow Up: 6 Months (Reason: OV) * Images: * Sign off status: Completed true * Provider: Adonis Lee MD Date: 0 02/11/2025 Generated for Mahendra turner/Raheem/eTransmitting on: 10/15/2024 07:17 AM EST History and Physical Notes * HPI (History of Present Illness) Category Sub-Category Detail Notes Depression Screening PHQ-9 Little inte rest or pleasure in doing things: Not at all Feeling down, depressed, or hopeless: Se veral days Trouble falling or staying asleep, or sl eeping too much: Not at all Feeling tired or having little energy: N ot at all Poor appetite or overeating: Not at all Feeling bad about yourself o r that you are a failure, or have let yourself or your family down: Not at all Trouble concentrating on thi ngs, such as reading the newspaper or watching television: Several days Moving or speaking so slowly that other people could have noticed; or the opposite, being so fidgety or restless that you have been moving around a lot more than usual: Not at all Thoughts that you would be b francy off or of hurting yourself in some way: Not at all Total Score: 2 Interpretation: Minimal Depression Fall Risk Screening Fall History Have you had any falls with injury in the past year?: No Have you had two or more falls in the st year?: Yes Fall Risk Assessment:: Two or more falls without injury in the past year COVID-19 Screening Questions Have you had any new onset fever, chills, cough, congestion, sore throat, shortness of breath, muscle aches?: No SDOH Questions SDOH Questions In the past year have you been worried about losing your housing?: No In the past year have you or any family members you live with been unable to get any of the following when it was really needed? Check all that apply:: None Examination Category Sub-Category Detail Notes General Examination [...] upper and lower extremities, sensory exam intact Upper extremities, diminished lower extremities SKIN: no suspicious lesion s, anicteric PERIPHERAL PULSES: normal BREASTS: Not examined, Examin ation was declined MUSCULOSKELETAL: extremities unremark able, no clubbing, cyanosis or edema LYMPH NODES: no enlarged lymph no roopa,spleen normal RECTAL EXAM: not examined PSYCH: alert, oriented, medical coordinator pesticide use perative with exam, cognitive function intact, good eye contact, speech clear, thought process logical, goal directed ORAL CAVITY: normal, unremarkable
--- OUTSIDE RECORDS SUMMARY | 2025-05-16 03:21 | XMS_ITS ---
Author Organization See Lee III, MD Address [address] [place] [address] [place] [address] Care Team Providers Care Sheeting Puller Name Role Phone Dr. See Lee III [...] Date Provider Diagnosis See Lee III, MD [address] [place] [address] [place] [address] 05/16/2025 See Lee Hyperlipidemia, unspecified hyperlipidemia type E78.5 Assessments Encounter Date Diagnosis (ICD Code) Assessment Notes Treat ment Notes Treatment Clinical Notes 05/16/2025 Hyperlipidemia, unspecified hyperlipidemia type (ICD-10 - E78.5) [...] Provider Name:See Lee , 08/17/2025 10:00:00 AM, [address] [place] [address] [place], [address], Provider Name:See Lee , 02/14/2026 10:00:00 AM, [address] [place] [address] DR, [address], [place], [address], Progress Notes * Rachael MORA ADOB: 2 (85 yo F)Acc No.[id number]:05/16/2025 Patient: Rachael GRAY :1940 A ge:85 Y S ex:Female Address: [address], [place] [address] * Refills Refill metFORMIN HCl Tablet, 500 MG, Orally, 360, 2 Tablets, Twice a day, 90 days, Refills=3 * true * Date: Generated for Mahendra turner/Raheem/Bhanuitting on: 10/15/2024 07:18 AM EST
--- OUTSIDE RECORDS SUMMARY | 2025-06-09 10:33 | XMS_ITS ---
Author Organization See Lee III, MD Address [address] [facility] [place] [address] Care Team Providers Care Ms Access Database Developer Name Role Phone Dr. See Lee III Primary Care Provider Results Component Value Reference Range Notes COLOGUARD Reviewed date:07/12/2025 01:09:18 PM Interpretation: Performing Lab: Notes/Report: Result Positive REASON FOR VISIT Cologuard order Social History Sex Assigned At : Social History Observation Description Sex Assigned At Female Encounters Encounter Location Date Provider Diagnosis See Lee III, MD [address] [place] [address] [place] [address] 06/09/2025 See Lee Encounter for screening for malignant neoplasm of colon Z12.11 Assessments Encounter Date Diagnosis (ICD Code) Assessment Notes Treatment Notes Treatment Clinical Notes 06/09/2025 Encounter for screening for malignant neoplasm of colon (ICD-10 - Z12.11) Plan Of Treatment Next Appt Details Provider Name:See Lee , 08/17/2025 10:00:00 AM, [address] [facility], [address], Provider Name:See Lee , 02/14/2026 10:00:00 AM, [address] [facility], [address], Progress Notes * Rachael MORAOB: 2 (85 yo F)Acc No.[id number]:06/09/2025 Patient: Rachael GRAY :1940 A ge:85 Y S ex:Female Address:[address] [place] [address], [place] [address] Subjective: * Chief Complaints: * C ologuard order * Medical History: * Surgical History: * Hospitalization/Major Diagno stic Procedure: * Medications: Objective: * Vitals: * Physical Examination: Assessment: * Assessment: 1. E ncounter for screening for malignant neoplasm of colon - Z12.11 Plan: * Treatment: * Procedure Codes: * true * Date: Generated for Mahendra turner/Raheem/Alexander on: 10/15/2024 07:18 AM EST
--- OUTSIDE RECORDS SUMMARY | 2025-07-01 04:51 | XMS_ITS ---
Author Organization See Lee III, MD Address [address] [place] [address] [place] [address] Care Team Providers Care Childcare Center Director Name Role Phone Dr. See Lee III Primary Care Provider REASON FOR VISIT New Refill Request Medications Medication SIG (Take, Route, Fr equency, Duration) Notes Start Date End Date Status Omeprazole 10 MG 1 capsule 30 minutes before morning meal Orally Once a day for 90 days Active Social History Sex Assigned At : Social History Observation Description Sex Assigned At Female Encounters Encounter Location Date Provider Diagnosis See Lee III, MD [address] [place] [address] [place] [address] 07/01/2025 See Lee Hyperlipidemia, unspecified hyperlipidemia type E78.5 Assessments Encounter Date Diagnosis (ICD Code) Assessment Notes Treat ment Notes Treatment Clinical Notes 07/01/2025 Hyperlipidemia, unspecified hyperlipidemia type (ICD-10 - E78.5) [...] morning meal Orally Once a day for 90 days Next Appt Details Provider Name:See Lee , 08/17/2025 10:00:00 AM, [address] [place] [address] [place], [address], Provider Name:See Lee , 02/14/2026 10:00:00 AM, [address] [place] [address] [address], [place], [address], Progress Notes * Rachael MORA ADOB: 2 (85 yo F)Acc No.[id number]:07/01/2025 Patient: Rachael GRAY :1940 A ge:85 Y S ex:Female Address: [address], [place] * Refills Refill Omeprazole Capsule Delayed Release, 10 MG, Orally, 90, 1 capsule 30 minutes before morning meal, Once a day, 90 days, Refills=3 * true * Date: Generated for Mahendra turner/Raheem/Bhanuitting on: 10/15/2024 07:17 AM EST
--- OUTSIDE RECORDS SUMMARY | 2025-08-14 07:18 | XMS_ITS | Patient Health Record ---
Author Organization [facility] Address [address] [place] [address] Care Team Providers Care Shirt Finisher Name Role Phone NAFISA ALEGRE MD Primary Care Provider ALEC Meneses Unavailable Allergies No Known Allergies Reason For Referral No Information Medications Medication SIG (Take, Route, Frequency, Duration) Notes Start Date End Date Status Atenolol 25 MG Tablet 1 tab(s) orally once a day; Duration: 30 day(s) Active Simvastatin 40 MG Tablet 1 tab(s) orally once a day (at bedtime); Duration: 30 day(s) Active metFORMIN HCl 500 MG Tablet 1 tab(s) orally 2 times a day Active Co Q10 ONE DAILY ORALLY NAME ONLY Conversion from [facility] Review and pick correct strength-formulatio n from [employer] options. If intended option is not shown, discontinue and re-order from Quick Search. Active Aspirin 81 MG Tablet Delayed Release 1 tab(s) orally once a day; Duration: 30 day(s) Active Vitamin D 50 MCG (2000 UT) Capsule 1 orally once a day Act paul Omeprazole 10 MG Capsule Delayed Release 1 cap(s) orally once a day; Duration: 30 day(s) Active Vitamin B 12 500 MCG Tablet 1 tab(s) orally once a day Active Social History Tobacco Use: Social History Observation Description Date Details (start date - stop date) Never Smoker NA - NA Social History Drug/Alcohol: Social Info Question Answer Notes Alcohol Screen Did you have a drink containing alcohol in the past year? Yes How often did you have a drink containing alcohol in the past year? Two to four times a month (2 points) How many drinks did you have on a tpical day when you were drinking in the past year? 1 or 2 (0 points) How often did you have six or more drinks on one occassion in the past year? 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 Past year's travels: none alcohol use: occassionally drug use: none Coffee/Tea/Soda: 5 cups of coffe e daily, no tea, no soda Marital Status experience n/a Living with spouse smokers in household none Drugs none Problems Problem Type SNOMED Code ICD Code Onset Dates Problem Status W/U Status Risk Notes Problem Type 2 diabetes mellitus (31075789) Type 2 diabetes mellitus (E11.9) Active confirmed Plan Of Treatment No Information Insurance Providers Payer Name Payer Address Payer Phone Subscriber Number Group Number Insured Name Patient Relationship to Insured Coverage Start Date Coverage End Date MEDICARE PLUS HMO [address] [place] [phone] [id number] DEMETRA LOPEZ Self - patient is the insured Medical (General) History Medical History History ICD Code Arthritis type 2 diabetes dx [address] Ashley rg hyperlipidemia Surgical History Surgery Date(Month/Year) gallbladder
--- OUTSIDE RECORDS SUMMARY | 2025-08-14 07:18 | XMS_ITS | Patient Health Record ---
Author Organization See Lee III, MD Address [address] [place] [address] DR [address]BE[address] [place] [address] Care Team Providers Care Plumber'S Helper Name Role Phone Dr. See Lee III [...] 1.3 BLD 5-10 Negative - Menstrating No COLOGUARD Reviewed date:07/12/2025 01:09:18 PM Interpretation: Performing Lab: Notes/Report: Result Positive Diabetic Eye Exam Reviewed date:02/11/2025 10:10:10 AM Interpretation:undefined Performing Lab: Notes/Report: undefined Complete Blood Count Auto Di ff Reviewed date:02/11/2025 10:17:27 AM Interpretation: Performing Lab:[facility], [address] [place] [address] Notes/Report: White Blood Count 6.6 4.8-10.8 X10*3/uL [...] 0.0-0.2 /100WBC Neutrophils Absolute Auto 4.5 2.0-8.3 x10*3/uL Imm Gran Abs Auto 0.02 0.00-0.03 X10*3/uL Lymphocytes Absolute Auto 1.7 1.2-4.9 X10*3/uL Monocytes Absolute Auto 0.3 0.1-1.2 X10*3/uL Eosinophils Absolute Auto 0.1 0.0-0.4 X10*3/uL Basophils Absolute Auto 0.0 0.0-0.2 X10*3/uL NRBC Abs Auto 0.000 0.0-0.012 X10*3/uL Comprehensive Philipp. Panel Fa st Reviewed date:02/11/2025 10:17:27 AM Interpretation: Performing Lab:[facility], [address] [place] [address], [place] [address] Notes/Report: Sodium 143 135-145 mmol/L Potassium 4.6 [...] Ferritin Reviewed date:02/11/2025 10:17:27 AM Interpretation: Performing Lab:[facility], [address] [place] [address] Notes/Report: Ferritin 25 10-250 ng/mL Lipid Panel Reviewed date:02/11/2025 10:17:28 AM Interpretation: Performing Lab:[facility], [address] [place] [address] Notes/Report: Triglycerides 156 <150 mg/dL Desirable Triglyceride: [...] B12 Reviewed date:02/11/2025 10:17:27 AM Interpretation: Performing Lab:[facility], [address] [place] [address] Notes/Report: Vitamin B12 464 200-900 pg/mL NORMAL 200-900 PG/ML INDETERMINATE 160-199 PG/ML DEFICIENT < 160 PG/ML Hemoglobin A1c Reviewed date:02/11/2025 10:17:27 AM Interpretation: Performing Lab:[facility], [address] [place] [address] [place] [address] Notes/Report: Hemoglobin A1c % 7.1 <6.0 % [...] average glucose, using the formula of the Z0G-Xowbmdy Average Glucose study (ADAG), Diabetes Care, Vol.31,#8, Mar. 2007 MM tomosynthesis screening B I Reviewed date:05/15/2025 08:28:40 PM Interpretation: Performing Lab: Notes/Report: [address] [place] [address] Mammography Report Signed Patient: Rachael Mora MR#: [id number] : 1940 Acct:[id number] Age/Sex: 85 / F ADM Date: 05/13/25 Loc: HO.MAMMO Attending Dr: See Lee MD Ordering Physician: See Lee MD Results: 2Benign Date of Service: 05/13/25 Follow Up: 1 Year From [facility] Mammogram Procedure(s): MM tomosynthesis screening BI Accession Number(s): [id number] cc: See Lee MD Reason For Exam: SCREENING EXAMINATION: MM SCREENING DIGITAL BREAST TOMOSYNTHESIS, BILATERAL CLINICAL INFORMATION: Screening. Asymptomatic. COMPARISON: Comparison made to multiple prior, most recent April 23, 2024, and most remote January 08, 2018. TECHNIQUE: Digital breast tomosynthesis is performed in mediolateral oblique and craniocaudal views along with computer-aided detection (CAD). Synthesized 2D images are generated from the tomosynthesis. Best possible images according to technologist's notes. FINDINGS: BREAST COMPOSITION: The breasts are heterogeneously dense, which may obscure small masses. RIGHT BREAST: Tissue marker from previous needle core biopsy. No significant masses, suspicious calcifications or other abnormalities are seen. LEFT BREAST: No significant masses, suspicious calcifications or other abnormalities are seen. MM/MM tomosynthesis screening BI IMPRESSION: BILATERAL BREASTS: Benign, no mammographic evidence of malignancy. Normal interval follow-up is recommended in 12 months. ASSESSMENT: BI-RADS: Category 2: Benign RECOMMENDATION: Routine annual mammography screening. FOLLOW-UP: 1 year F/U This examination should not preclude the clinical evaluation of a suspicious palpable abnormality. This patient's information was entered into a reminder system with a target due date for their next mammogram. Electronically signed by: Glynn Yap MD 05/14/2025 08:01 PM EDT Dictated By: Glynn Yap MD Signed By: <Electronically signed by Glynn Yap MD in OV> 05/14/252000 DD/ 1009 TD/TT: 05/13/25 1023 Gauge Maker: A[place] [facility] [address] [place] [address] Mammography Report Signed Patient: Bea Mora MR#: [id number] : 1940 Acct:[id number] Age/Sex: 85 / F ADM Date: 05/13/25 Loc: HO.MAMMO Attending Dr: See Lee MD Ordering Physician: See Lee MD Results: 2Benign Date of Service: 05/13/25 Follow Up: 1 Year From [facility] Mammogram Procedure(s): MM tomosynthesis screening BI Accession Number(s): [id number] cc: See Lee MD Reason For Exam: SCREENING EXAMINATION: MM SCREENING DIGITAL BREAST TOMOSYNTHESIS, BILATERAL CLINICAL INFORMATION: Screening. Asymptomatic. COMPARISON: Comparis on made to multiple prior, most recent April 23, 2024, and most remot e January 08, 2018. TECHNIQUE: Digital breast tomosynthesis is performed in mediolateral oblique and craniocaudal views along with computer-aided detection (CAD). Synthesized 2D image s are generated from the tomosynthesis. Best possible images according to technologist's notes. FINDINGS: BREAST COMPOSITION: The breasts are heterogeneously dense, which may obscure small masses. RIGHT BREAST: Tissue marker from previous needle core biopsy. No significant masses, suspicious calcifications or other abnormalities are seen. LEFT BREAST: No significant masses, suspicious calcifications or other abnormalities are seen. MM/MM tomosynthesis screening BI IMPRESSION: BILATERAL BREASTS: Benign, no mammographic evidence of malignancy. Normal interval follow-up is recommended in 12 months. ASSESSMENT: BI-RADS: Category 2: Benign RECOMMENDATION: Routine annual mammography screening. FOLLOW-UP: 1 year F/U This examination mattie uld not preclude the clinical evaluation of a suspicious palpable abnormality. This patient's information was entered into a reminder system with a target due date for their next mammogram. Electronically antwan d by: Glynn Yap MD 05/14/2025 08:01 PM EDT Dictated By: Glynn Yap MD Signed By: <Electronically signed by Glynn Yap MD in OV> 05/14/252000 DD/ 1009 TD/TT: 05/13/25 1023 Gauge Maker: Reason For Referral No Information Medications Medication SIG (Take, Route, Frequency, Duration) Notes Start Date End Date Status Iron (Ferrous Sulfate) 325 (65 Fe) MG 1 tablet Orally Once every two days Active metFORMIN HCl 500 MG 2 Tablets Orally Tw ice a day for 90 days Active Lisinopril 2.5 MG 1 tablet Orally Once a day 09/23/2019 Active Omeprazole 10 MG 1 capsule 30 minutes before morning meal Orally Once a day for 90 days Active glipiZIDE 5 MG 1 tablet 30 [...] ered COVID Pfizer Bivalent Unknown 06/26/2022 Administered Comirnaty Pfizer COVID-19 12+ Unknown 05/22/2023 Admini stered [...] Notes Problem Vitamin B12 deficiency (non anemic) (17001825) B12 deficiency (E53.8) Active confirmed The B12 level is in the normal range in current therapy was continued. Problem 93180273 Iron deficiency (E61.1) Active confirmed She is taking her iron, but forgets to do it sometimes. Her hematocrit remains low volume are normal. The ferritin level is 10 which is the low limit of normal. We discussed various wayys to help her remember to take her medication daily. Problem 74288748 Essential hypertension (I10) Active confirmed Her blood pressure today is 120/70 and no change in her regimen was necessary. Problem 51979875 Alopecia (L65.9) Active confirmed Her hair is thinning diffusely and not in patches. Blood work with thyroid functions have been ordered. Problem 660341405 Anemia, unspecified type (D64.9) Active confirmed Her hematocrit is 36.8 with a normal mean cell volume. She has had no sign of bleeding. Current therapy was continued without change. Problem Hyperlipidaemia (95145327) Hyperlipidemia, unspecified hyperlipidemia type (E78.5) Active confirmed The current fasting lipid profile shows good control of her lipids and no change in her regimen was made. She was encouraged to lose weight and consume a healthy diet and exercise regularly. Problem 970867456 Type 2 diabetes mellitus without complication, without long-term current use of insulin (E11.9) Active confirmed Hemoglobin A1c is 6.9. No change in her medications was made. She has lost 6 pounds and is consuming a healthy diabetic diet. Problem Disorder due to type 2 diabetes mellitus (776721454) Type 2 diabetes mellitus with complication, without long-term current use of insulin (E11.8) Active confirmed The hemoglobin A1c has increased to 7.1. We discussed her weight diet and medications at length. Problem 032403772 Osteopenia of lumbar spine (M85.88) Active confirmed She was continued on her current regimen. His bone density. We will be done frequently. She will take calcium supplements and vitamin D. Problem 391476431 History of uterine prolapse (Z87.42) Active confirmed She is using the pessary and is quite satisfied with the results. She is under the care of a discharge specialist . Vital Signs Heart Rate 54 /min 02/11/2025 Temperature 98.4 degrees Fahrenheit 02/11/2025 Respiratory Rate 16 /min 02/11/2025 Oximetry 98 % 02/11/2025 Blood pressure diastolic 56 mm Hg 02/11/2025 Height 64 in 02/11/2025 Blood pressure systolic 134 mm Hg 02/11/2025 Weight 140 lbs 02/11/2025 BMI 24.03 kg/m2 02/11/2025 Encounters Encounter Location Date Provider Diagnosis See Lee III, MD [address] [place] [address] [place] [address] 02/11/2025 See Lee Hyperlipidemia, unspecified hyperlipidemia type E78.5 ; Type 2 diabetes mellitus with complication, without long-term current use of insulin E11.8 ; B12 deficiency E53.8 ; Anemia, unspecified type D64.9 and History of uterine prolapse Z87.42 See Lee III, MD [address] [place] [address] [place] [address] 06/09/2025 See Lee Encounter for screen ing for malignant neoplasm of colon Z12.11 See Lee III, MD [address] [place] [address] [place] [address] 08/23/2024 See Lee Hyperlipidemia, unspecified hyperlipidemia type E78.5 See Lee III, MD [address] [place] [address] [place] [address] 01/17/2025 See Lee Hyperlipidemia, unspecified hyperlipidemia type E78.5 See Lee III, MD [address] [place] [address] [place] [address] 05/16/2025 See Lee Hyperlipidemia, unspecified hyperlipidemia type E78.5 See Lee III, MD [address] [place] [address] [place] [address] 07/01/2025 See Lee Hyperlipidemia, unspecified hyperlipidemia type [...] her weight diet and medications at length. 06/09/2025 Encounter for screening for malignant neoplasm of colon (ICD-10 - Z12.11) 08/23/2024 Hyperlipidemia, unspecified hyperlipidemia type (ICD-10 - [...] consume a healthy diet and exercise regularly. 05/16/2025 Hyperlipidemia, unspecified hyperlipidemia type (ICD-10 - E78.5) The current fasting lipid profile shows good control of her lipids and no change in her regimen was made. She was encouraged to lose weight and consume a healthy diet and exercise regularly. 07/01/2025 Hyperlipidemia, unspecified hyperlipidemia type (ICD-10 - E78.5) The current fasting lipid profile shows good control of her lipids and no change in her regimen was made. She was encouraged to lose weight and consume a healthy diet and exercise regularly. 02/11/2025 B12 deficiency (ICD-10 - E53.8) The [...] She is under the care of a discharge specialist. Plan Of Treatment Pending Test Test Name [...] Ferritin 06/24/2023 Lipid Panel 05/30/2022 Lipid Panel 06/24/2023 Lipid Panel 09/13/2023 Lipid Panel 05/10/2021 Lipid Panel 01/17/2024 Lipid Panel 05/15/2024 Lipid Panel 02/11/2025 Vitamin B12 06/24/2023 Vitamin B12 09/13/2023 Vitamin B12 05/15/2024 Vitamin B12 02/06/2021 Vitamin B12 02/11/2025 Vitamin D 25-OH Total 05/30/2022 Intrinsic Factor Antibodies 02/06/2021 Microalbumin, Random 02/11/2025 Microalbumin, Random 06/24/2023 Microalbumin, Random 01/17/2024 Routine Culture 05/10/2023 Hemoglobin A1c 05/15/2024 Hemoglobin A1c 02/11/2025 Hemoglobin A1c 06/24/2023 Hemoglobin A1c 09/13/2023 Hemoglobin A1c 01/17/2024 Next Appt Details Provider Name:See Lee , 08/17/2025 10:00:00 AM, [address] [place] [address] [address], [place], [address], Provider Name:See Lee , 02/14/2026 10:00:00 AM, [address] [place] [address] [address], [place], [address], Insurance Providers Payer Name Payer Address Payer Phone Subscriber Number Group Number Insured Name Patient Relationship to Insured Coverage Start Date Coverage End Date [employer] [address] [place] [address] [phone] [id number] Rachael Mora Self - patient is the [...]
[2025-08-14 07:34] LABS: MANUAL DIFF FLAG NO
[2025-08-14 08:00] LABS: Hematocrit 39.1 % (37.0-47.0); Hemoglobin 12.2 g/dl (12.0-16.0); Imm Gran Abs Auto 0.01 X10*3/uL (0.00-0.03); Imm Gran Pct Auto 0.1 % (0.0-0.4); Lymphocytes Absolute Auto 1.6 X10*3/uL (1.2-4.9); Mean Corpuscular HGB Conc 31.2 g/dl (31.0-35.0); Mean Corpuscular Hemoglobin 29.9 pg (27.0-33.0); Mean Corpuscular Volume 95.8 fL (80.0-98.0); NRBC Abs Auto 0.000 X10*3/uL (0.0-0.012); NRBC Pct Auto 0.0 /100WBC (0.0-0.2); Platelet Count 305 X10*3/uL (160-400); Red Blood Count 4.08 X10*6/uL (4.20-5.50); White Blood Count 6.7 X10*3/uL (4.8-10.8)
[2025-08-14 08:32] LABS: Alanine Aminotransferase 12 U/L (0-31); Albumin Level 4.2 g/dL (3.5-5.0); Alkaline Phosphatase 48 U/L (39-117); Anion Gap 14 (12-20); Aspartate Amino Transferase 18 U/L (5-31); Blood Urea Nitrogen 11 mg/dL (9-16); Calcium 9.8 mg/dL (8.4-10.2); Carbon Dioxide 29 mmol/L (22-29); Chloride 106 mmol/L (96-108); Cholesterol 155 mg/dL (<200); Estimated Glomerular Filt Rate > 60; HDL Cholesterol 54 mg/dL (>40); Potassium 4.6 mmol/L (3.3-5.1); Sodium 144 mmol/L (135-145); Total Protein 6.9 g/dL (6.5-8.0); Triglycerides 128 mg/dL (<150)
[2025-08-14 08:47] LABS: Ferritin 29 ng/mL (10-250)
[2025-08-14 08:48] LABS: Microalbum/Creatinine Ratio Ur 27.6 ug/mg cr (<30)
[2025-08-14 08:53] LABS: Vitamin B12 455 pg/mL (200-900)
== END 2025-08-14 07:16 | disposition home or self-care (01) ==
LOC: HO.LAB 07:15
PROVIDERS: PCP Internal Medicine Medical Oncology; Visit Provider Internal Medicine Medical Oncology
DX: Z00.00 Encounter for general adult medical examination without abnormal findings (principal); E78.5 Hyperlipidemia, unspecified; E53.8 Deficiency of other specified B group vitamins; D64.9 Anemia, unspecified; E11.8 Type 2 diabetes mellitus with unspecified complications
CPT/HCPCS: 36415; 80053; 80061; 82043; 82570; 82607; 82728; 83036; 85025